=== PATIENT | male | born 1965 | race Caucasian/White ===

== ENCOUNTER 2016-11-16 10:26 | Emergency (ER) | payer BC ==
[2016-11-16] MEDS ORDERED: MORPHINE SULFATE 4 MG/ML SYRINGE IVP STA ×2 (10:54→12:28)
[2016-11-16] MEDS ORDERED: ONDANSETRON 4 MG/2 ML VIAL IVP STA (10:54)
[2016-11-16] MEDS ORDERED: SODIUM CHLORIDE 0.9% 1,000 ML IV ONE (10:54)
[2016-11-16] MEDS ORDERED: KETOROLAC 30 MG/ML 1 ML VIAL IVP STA (10:54)
[2016-11-16] MEDS ORDERED: RX INFO: IV CONTRAST WAS GIVEN 1 EACH MISC MISCELLANE PRN (10:54)
[2016-11-16 11:17] LABS: Basophils # (A) 0.1 k/uL (0-0.2); Basophils % (A) 1 %; CH 29.4; CHCM 36.1; Eosinophils # (A) 0.3 k/uL (0-0.7); Eosinophils % (A) 5 %; HCT 43.6 % (39.0-53.0); HDW 3.58; Luc # (Auto) 0.11; Luc % (Auto) 2; Lymphocytes # (A) 1.4 k/uL (1.0-4.8); Lymphocytes % (A) 19 %; MCH 28.2 pg (25.0-35.0); MCHC 34.4 g/dL (31.0-37.0); MCV 81.8 fL (80.0-100.0); Mean Platelet Volume 7.4; Monocytes # (A) 0.4 k/uL (0-1.0); Monocytes % (A) 5 %; Neutrophils # (A) 5.1 k/uL (1.3-7.7); Neutrophils % (A) 69 %; Poikilocytosis Slight; RBC 5.33 m/uL (4.30-5.90); RDW 14.1 % (11.5-15.5); WBC 7.4 k/uL (3.8-10.6); WBC (Perox) 7.17
[2016-11-16 11:30] LABS: ALT 38 U/L (21-72); AST 26 U/L (17-59); Alkaline Phosphatase 83 U/L (38-126); Anion Gap 15 mmol/L; Blood Urea Nitrogen 19 mg/dL (9-20); Calcium 9.6 mg/dL (8.4-10.2); Carbon Dioxide 27 mmol/L (22-30); Chloride 103 mmol/L (98-107); Glucose 123 mg/dL (74-99); Non-African American GFR(MDRD) >60 (>60 ml/min/1.73 sqM); Potassium 3.4 mmol/L (3.5-5.1); Sodium 145 mmol/L (137-145); Total Bilirubin 0.7 mg/dL (0.2-1.3); Total Protein 7.7 g/dL (6.3-8.2)
--- NOTE | 2016-11-16 12:11 | CT ---
EXAMINATION TYPE: CT abdomen pelvis w con DATE OF EXAM: 11/16/2016 11:44 AM REFERENCE: NONE HISTORY: Abdominal pain r/o diverticulitis HISTORY: LLQ pain, history of diverticulitis REFERENCE: NONE CT DLP: 2390.1 mGy Automated exposure control for dose reduction was used. TECHNIQUE: Helical acquisition through the abdomen and pelvis was obtained following the oral ingesti on of without Oral Contrast and following intravenous administration of 100 mL of Omnipaque 300. The data was reformatted in axial, coronal and sagittal projections. FINDINGS: Visualized portions of the lungs are clear. There is no pleural or pericardial fluid. Within the abdomen, there is hepatosplenomegaly with the liver measuring 21 cm and the spleen measuri ng 17 cm. The gallbladder is unremarkable. Both adrenal glands are normal. There is mild atrophic change involving the pancreas. Both kidneys demonstrate function and appear morphologically normal. There is no significant retroperitoneal, iliac or inguinal adenopathy. The bladder is unremarkable. There are numerous diverticula involving the sigmoid colon. I do not see evidence of diverticulitis. The appendix is not visualized. Small bowel loops are normal. There is no free fluid and no free air. There is mild hypertrophic spondylosis within the spine. IMPRESSION: 1. HEPATOSPLENOMEGALY. 2. UNCOMPLICATED DIVERTICULOSIS OF THE SIGMOID COLON. 3. MILD DEGENERATIVE CHANGE WITHIN THE SPINE.
--- NOTE | 2016-11-16 12:19 | ED ---
General Adult HPI - General Chief complaint: Abdominal Pain Stated complaint: abd pain Time Seen by Provider: 11/16/16 10:32 Source: patient Mode of arrival: ambulatory Limitations: no limitations - History of Present Illness Initial comments: 51-year-old male with past medical history of kidney stones and diverticulitis present for evaluation of suprapubic abdominal pain/pressure that started last night. He states this is similar to previous bouts of diverticulitis he said in the past but much more severe. At those times he would take antibiotics and symptoms resolve. There was associated hematochezia with his bowel movement last night and he further states urinary hesitancy which has resolved today while taking a warm shower. Last colonoscopy was a year ago but he is unsure who his GI specialist is. He denies any chest pain, shortness breath, fevers, chills but does admit to mild nausea. - Related Data Home Medications Medication Instructions Recorded Confirmed Allopurinol [Zyloprim] 300 mg PO DAILY 11/16/16 11/16/16 Atorvastatin [Lipitor] 10 mg PO DAILY 11/16/16 11/16/16 Carvedilol [Coreg] 25 mg PO BID 11/16/16 11/16/16 Cetirizine HCl [Zyrtec] 10 mg PO DAILY 11/16/16 11/16/16 Chlorthalidone [Hygroton] 25 mg PO DAILY 11/16/16 11/16/16 Fluticasone Nasal [place] [Flonase 1 spray EA NOSTRIL DAILY 11/16/16 11/16/16 Nasal [place]] Losartan Potassium [Cozaar] 100 mg PO HS 11/16/16 11/16/16 Potassium Chloride [K-Tab ER] 20 meq PO BID 11/16/16 11/16/16 amLODIPine [Norvasc] 10 mg PO HS 11/16/16 11/16/16 Previous Rx's Medication Instructions Recorded Ciprofloxacin HCl [Cipro] 500 mg PO Q12HR #28 tablet 11/16/16 HYDROcodone/APAP 5-325MG [[place] 1 - 2 tab PO Q6HR PRN #14 tab 11/16/16 5-325] metroNIDAZOLE [Flagyl] 500 mg PO Q8HR #32 tab 11/16/16 Allergies Allergy/AdvReac Type Severity Reaction Status Date / Time No Known Allergies Allergy Verified 11/16/16 12:50 Review of Systems ROS Statement: Those systems with pertinent positive or pertinent negative responses have been documented in the HPI. ROS Other: All systems not noted in ROS Statement are negative. Constitutional: Denies: fever, chills Eyes: Denies: eye pain, eye discharge, vision change ENT: Denies: ear pain, throat pain Respiratory: Denies: cough, dyspnea, wheezes, hemoptysis, stridor Cardiovascular: Denies: chest pain, palpitations Endocrine: Denies: fatigue, polydipsia, polyuria Gastrointestinal: Reports: abdominal pain, nausea, hematochezia. Denies: vomiting, hematemesis, melena Genitourinary: Reports: other (Hesitancy). Denies: hematuria, testicular pain, testicular mass Musculoskeletal: Denies: back pain, arthralgia Skin: Denies: rash, lesions Neurological: Denies: headache, weakness Psychiatric: Denies: anxiety, depression Past Medical History Past Medical History: Hypertension Additional Past Medical History / Comment(s): diverticulitis, kidney stone History of Any Multi-Drug Resistant Organisms: None Reported Past Surgical History: Appendectomy Additional Past Surgical History / Comment(s): lithotripsy Past Psychological History: No Psychological Hx Reported Smoking Status: Never smoker Past Alcohol Use History: Occasional Past Drug Use History: None Reported General Exam Limitations: no limitations General appearance: alert, in distress Head exam: Present: atraumatic, normocephalic Eye exam: Present: normal appearance, PERRL, EOMI ENT exam: Present: normal exam, normal oropharynx, mucous membranes moist Neck exam: Present: normal inspection. Absent: tenderness, full ROM Respiratory exam: Present: normal lung sounds bilaterally. Absent: respiratory distress, wheezes, rales Cardiovascular Exam: Present: regular rate, normal rhythm GI/Abdominal exam: Present: soft. Absent: tenderness, guarding, rebound Rectal exam: Present: deferred Extremities exam: Present: normal inspection, full ROM Back exam: Present: normal inspection, full ROM Neurological exam: Present: alert, oriented X3, CN II-XII intact, normal gait. Absent: altered Psychiatric exam: Present: normal affect, normal mood Skin exam: Present: warm, dry, intact Course Vital Signs 11/16/16 11/16/16 11/16/16 10:27 11:15 12:21 Temperature 97.5 F L 97.8 F Pulse Rate 78 60 57 L Respiratory 20 16 16 Rate Blood Pressure 137/79 113/57 118/69 O2 Sat by Pulse 95 94 L Oximetry EKG Findings - EKG Comments: EKG Findings:: Normal sinus rhythm with voltage criteria for LVH in aVL ventricular rate 64, TACOS 184, QRS 108, QTC 437 Medical Decision Making - Medical Decision Making 51-year-old male presented for evaluation of suprapubic abdominal pain /pressure since yesterday evening. He states that he has had bloody bowel movements with associated nausea. He does have a history of kidney stones but states this feels more like his diverticulitis. Last colonoscopy was here ago. Previous treatments with antibiotics of been successful but he states this current episode is much worse than before. On physical examination he does have suprapubic tenderness with some radiation up to the left lower quadrant without peritoneal signs of guarding, rigidity, or rebound. Concern for acute diverticulitis and will obtain CT abdomen with IV contrast, labs, and provide IV fluids, Zofran, and pain control. Labs revealed no significant abnormalities. CT of the abdomen showed no evidence of diverticulitis and stable diverticulosis. The patient was reevaluated and had improvement in his symptoms. He is informed of these results and through shared decision making it was determined that he would be discharged with instructions to follow-up with his primary care physician on Friday but to return if symptoms should worsen or persist in the meantime. He was informed that he would be given prescriptions for pain control, Zofran, and antibiotics. He acknowledged an understanding of this information and agreed with this plan of care. - Lab Data Result diagrams: 11/16/16 11:05 11/16/16 11:05 Lab Results 11/16/16 11/16/16 11/16/16 Range/Units 11:05 11:05 11:05 WBC 7.4 (3.8-10.6) k/uL RBC 5.33 (4.30-5.90) m/uL Hgb 15.0 (13.0-17.5) gm/dL Hct 43.6 (39.0-53.0) % MCV 81.8 (80.0-100.0) fL MCH 28.2 (25.0-35.0) pg MCHC 34.4 (31.0-37.0) g/dL RDW 14.1 (11.5-15.5) % Plt Count 240 (150-450) k/uL Neutrophils % 69 % Lymphocytes % 19 % Monocytes % 5 % Eosinophils % 5 % Basophils % 1 % Neutrophils # 5.1 (1.3-7.7) k/uL Lymphocytes # 1.4 (1.0-4.8) k/uL Monocytes # 0.4 (0-1.0) k/uL Eosinophils # 0.3 (0-0.7) k/uL Basophils # 0.1 (0-0.2) k/uL Poikilocytosis Slight Sodium 145 (137-145) mmol/L Potassium 3.4 L (3.5-5.1) mmol/L Chloride 103 (98-107) mmol/L Carbon Dioxide 27 (22-30) mmol/L Anion Gap 15 mmol/L BUN 19 (9-20) mg/dL Creatinine 1.10 (0.66-1.25) mg/dL Est GFR (MDRD) Af Amer >60 (>60 ml/min/1.73 sqM) Est GFR (MDRD) Non-Af >60 (>60 ml/min/1.73 sqM) Glucose 123 H (74-99) mg/dL Plasma Lactic Acid [place] 1.2 (0.7-2.0) mmol/L Calcium 9.6 (8.4-10.2) mg/dL Total Bilirubin 0.7 (0.2-1.3) mg/dL AST 26 (17-59) U/L ALT 38 (21-72) U/L Alkaline Phosphatase 83 (38-126) U/L Total Protein 7.7 (6.3-8.2) g/dL Albumin 4.7 (3.5-5.0) g/dL Lipase 680 H (23-300) U/L Urine Color Urine Appearance (Clear) Urine pH (5.0-8.0) Ur Specific [place] (1.001-1.035) Urine Protein (Negative) Urine Glucose (UA) (Negative) Urine Ketones (Negative) Urine Blood (Negative) Urine Nitrite (Negative) Urine Bilirubin (Negative) Urine Urobilinogen (<2.0) mg/dL Ur Leukocyte Esterase (Negative) Urine RBC (0-5) /hpf Urine WBC (0-5) /hpf Ur Squamous Epith Cells (0-4) /hpf Urine Mucus (None) /hpf 11/16/16 Range/Units 12:06 WBC (3.8-10.6) k/uL RBC (4.30-5.90) m/uL Hgb (13.0-17.5) gm/dL Hct (39.0-53.0) % MCV (80.0-100.0) fL MCH (25.0-35.0) pg MCHC (31.0-37.0) g/dL RDW (11.5-15.5) % Plt Count (150-450) k/uL Neutrophils % % Lymphocytes % % Monocytes % % Eosinophils % % Basophils % % Neutrophils # (1.3-7.7) k/uL Lymphocytes # (1.0-4.8) k/uL Monocytes # (0-1.0) k/uL Eosinophils # (0-0.7) k/uL Basophils # (0-0.2) k/uL Poikilocytosis Sodium (137-145) mmol/L Potassium (3.5-5.1) mmol/L Chloride (98-107) mmol/L Carbon Dioxide (22-30) mmol/L Anion Gap mmol/L BUN (9-20) mg/dL Creatinine (0.66-1.25) mg/dL Est GFR (MDRD) Af Amer (>60 ml/min/1.73 sqM) Est GFR (MDRD) Non-Af (>60 ml/min/1.73 sqM) Glucose (74-99) mg/dL Plasma Lactic Acid [place] (0.7-2.0) mmol/L Calcium (8.4-10.2) mg/dL Total Bilirubin (0.2-1.3) mg/dL AST (17-59) U/L ALT (21-72) U/L Alkaline Phosphatase (38-126) U/L Total Protein (6.3-8.2) g/dL Albumin (3.5-5.0) g/dL Lipase (23-300) U/L Urine Color Yellow Urine Appearance Clear (Clear) Urine pH 5.5 (5.0-8.0) Ur Specific [place] 1.029 (1.001-1.035) Urine Protein 1+ H (Negative) Urine Glucose (UA) Negative (Negative) Urine Ketones Negative (Negative) Urine Blood Negative (Negative) Urine Nitrite Negative (Negative) Urine Bilirubin Negative (Negative) Urine Urobilinogen <2.0 (<2.0) mg/dL Ur Leukocyte Esterase Negative (Negative) Urine RBC <1 (0-5) /hpf Urine WBC 2 (0-5) /hpf Ur Squamous Epith Cells 1 (0-4) /hpf Urine Mucus Rare H (None) /hpf Disposition Clinical Impression: Diverticulosis, Nausea Disposition: HOME SELF-CARE Condition: Stable Instructions: Diverticulosis (ED), Diverticulitis (ED), Diverticulitis Diet (ED ) Additional Instructions: Please use medication as discussed. Please follow up with family doctor if symptoms have not improved over the next two days. Please return to the emergency room if your symptoms increase or worsen or for any other concerns. Prescriptions: Ciprofloxacin HCl [Cipro] 500 mg PO Q12HR #28 tablet HYDROcodone/APAP 5-325MG [[place] 5-325] 1 - 2 tab PO Q6HR PRN #14 tab PRN Reason: Analgesia metroNIDAZOLE [Flagyl] 500 mg PO Q8HR #32 tab Time of Disposition: 14:15
[2016-11-16 12:21] VITALS: RESP 16
[2016-11-16 12:59] LABS: Appearance,Urine Clear (Clear); Bilirubin,Urine Negative (Negative); Glucose,Urine (UA) Negative (Negative); Ketones,Urine Negative (Negative); Leukocyte Esterase,Urine Negative (Negative); Mucus,Urine Rare /hpf; Nitrite,Urine Negative (Negative); PH, Urine 5.5 (5.0-8.0); Particle Count 4302; Protein,Urine 1+ (Negative); RBC,Urine <1 /hpf (0-5); Specific Gravity,Urine 1.029 (1.001-1.035); Squamous Epithelial Cell,Urine 1 /hpf (0-4); UA Billing (MACRO vs. MICRO) MICRO; Urobilinogen,Urine <2.0 mg/dL (<2.0); WBC,Urine 2 /hpf (0-5)
[2016-11-16] MEDS ORDERED: ONDANSETRON 4 MG ODT STARTER PACK 2 TAB BTL PO STA (14:11)
[2016-11-16 14:20] VITALS: BP 146/76; PULSE 67; TEMP 97.7
== END 2016-11-16 14:33 | disposition home or self-care (01) ==
LOC: EC 10:26
DX: K57.90 Diverticulosis of intestine, part unspecified, without perforation or abscess without bleeding (principal); R11.0 Nausea; R10.30 Lower abdominal pain, unspecified; Z87.442 Personal history of urinary calculi; I10 Essential (primary) hypertension; Z79.899 Other long term (current) drug therapy; Z79.02 Long term (current) use of antithrombotics/antiplatelets; Z87.19 Personal history of other diseases of the digestive system; Z90.49 Acquired absence of other specified parts of digestive tract
CPT/HCPCS: 36415; 93005; 80053; 83605; 83690; 85025; 81001; 74177; 99284; 96374; 96375 ×2; 96376; 96361; J2270; J2405; J1885; Q9967; S0119

== ENCOUNTER → 2017-03-06 | Outpatient (CLI) | payer BC ==
[2017-03-06 14:03] LABS: Blood Urea Nitrogen 12 mg/dL (9-20); Non-African American GFR(MDRD) >60 (>60 ml/min/1.73 sqM)
--- NOTE | 2017-03-06 15:36 | CT ---
EXAMINATION TYPE: CT abdomen pelvis w con DATE OF EXAM: 03/06/[address] abdomen and pelvis November 16, 2016 HISTORY: Patient complains of generalized pelvic pain, nausea, diarrhea, and constipation. Diverticul itis of large intestine per order. CT DLP: 2157 mGycm, Automated Exposure Control for Dose Reduction was Utilized. CONTRAST: CT scan of the abdomen and pelvis is performed with oral and with IV Contrast, patient injected with 100 mL of Omnipaque 300. FINDINGS: LUNG BASES: Some coronary artery calcification RCA distribution is identified. LIVER/GB: No significant abnormality is appreciated. PANCREAS: Mild fat replaced atrophy of pancreas is redemonstrated. SPLEEN: Spleen is once again enlar ged measuring 16.6 cm on long axis coronal image 60. A 1 cm splenule is redemonstrated in the inferio r splenic hilum on axial image 35 ADRENALS: No significant abnormality is seen. KIDNEYS: No significant abnormality is seen. BOWEL: Oral contrast reaches level of right colon. There is no suspicious small or large bowel dilata tion identified. Prominent colonic diverticula in the sigmoid colon are seen. There is new mild vasa engorgement in which mild acute diverticulitis cannot be excluded centered near axial image 81. No fr ee air or well-formed fluid collection is noted. PROSTATE/SEMINAL VESICLES: Prostate gland is heterogeneous in appearance and enlarged in size bulging on bladder base consistent with underlying BPH, clinical correlation is advised. LYMPH NODES: No greater than 1cm abdominal or pelvic lymph nodes are appreciated. OSSEOUS STRUCTURES: Straightening of spine on sagittal images is redemonstrated. OTHER: No significant additional abnormality is seen. IMPRESSION: Sigmoid colonic diverticulosis with suspected mild or early acute diverticulitis currentl y which correlates with patient history on the order. No well-formed fluid collection or free air is present.
== END | disposition home or self-care (01) ==
LOC: RADCTMAIN 13:16
DX: K57.30 Diverticulosis of large intestine without perforation or abscess without bleeding (principal)
CPT/HCPCS: 82565; 84520; 74177; 36415; Q9967

== ENCOUNTER 2017-03-19 12:38 | Observation (INO) | payer BC ==
--- NOTE | 2017-03-19 14:33 | ED ---
GI Bleed HPI - General Source: patient, RN notes reviewed Mode of arrival: ambulatory Limitations: no limitations <Pardeep Lynch - Last Filed: 03/19/17 16:07> <Arvind Lujan - Last Filed: 03/19/17 17:05> - General Chief complaint: GI Bleed Stated complaint: Abd Pain Time Seen by Provider: 03/19/17 14:12 - History of Present Illness Initial comments: 51-year-old male presents emergency Department chief complaint abdominal pain. Patient's abdomen off issues since October and has been evaluated several times in ER and was told that he had diverticulitis placed on antibiotics with minimal improvement. Patient states that his GI physician Monica believes that he is not diverticulitis cause a normal colonoscopy in the room 216. Patient had recent CT a few weeks prior which showed evidence of diverticulitis again though he was told this was not diverticulitis is more likely colitis. Patient is waiting for his GI physician to get Bactrim at this point. Patient states he was tried on a course of steroids states she did well when he is on 30 mg. Patient denies any nausea vomiting at this time. Patient states that he does have rectal bleeding and states it's with every bowel movement. Much since October. Patient states that he is having increasing pain this time along with some abdominal distention. (Pardeep Lynch) - Related Data Home Medications Medication Instructions Recorded Confirmed Allopurinol [Zyloprim] 300 mg PO DAILY 11/16/16 03/19/17 Atorvastatin [Lipitor] 10 mg PO DAILY 11/16/16 03/19/17 Carvedilol [Coreg] 25 mg PO BID 11/16/16 03/19/17 Cetirizine HCl [Zyrtec] 10 mg PO DAILY 11/16/16 03/19/17 Chlorthalidone [Hygroton] 25 mg PO DAILY 11/16/16 03/19/17 Fluticasone Nasal [place] [Flonase 1 spray EA NOSTRIL DAILY PRN 11/16/16 03/19/17 Nasal [place]] Losartan Potassium [Cozaar] 100 mg PO HS 11/16/16 03/19/17 Potassium Chloride [K-Tab ER] 20 meq PO BID 11/16/16 03/19/17 amLODIPine [Norvasc] 10 mg PO HS 11/16/16 03/19/17 Allergies Allergy/AdvReac Type Severity Reaction Status Date / Time No Known Allergies Allergy Verified 03/19/17 14:32 Review of Systems ROS Other: All systems not noted in ROS Statement are negative. <Pardeep Lynch - Last Filed: 03/19/17 16:07> ROS Other: All systems not noted in ROS Statement are negative. <Arvind Lujan - Last Filed: 03/19/17 17:05> ROS Statement: Those systems with pertinent positive or pertinent negative responses have been documented in the HPI. Past Medical History Past Medical History: Hypertension Additional Past Medical History / Comment(s): kidney stone History of Any Multi-Drug Resistant Organisms: None Reported Past Surgical History: Appendectomy Additional Past Surgical History / Comment(s): lithotripsy Past Psychological History: No Psychological Hx Reported Smoking Status: Never smoker Past Alcohol Use History: Occasional Past Drug Use History: None Reported <Pardeep Lynch - Last Filed: 03/19/17 16:07> General Exam Limitations: no limitations General appearance: alert, in no apparent distress Head exam: Present: atraumatic, normocephalic, normal inspection Eye exam: Present: normal appearance, PERRL, EOMI. Absent: scleral icterus, conjunctival injection, periorbital swelling Respiratory exam: Present: normal lung sounds bilaterally. Absent: respiratory distress, wheezes, rales, rhonchi, stridor Cardiovascular Exam: Present: regular rate, normal rhythm, normal heart sounds. Absent: systolic murmur, diastolic murmur, rubs, gallop, clicks GI/Abdominal exam: Present: soft, tenderness ([id number] diffuse greater in the lower abdomen), normal bowel sounds. Absent: distended, guarding, rebound, rigid Back exam: Absent: CVA tenderness (R), CVA tenderness (L) Psychiatric exam: Present: normal affect, normal mood <Pardeep Lynch - Last Filed: 03/19/17 16:07> Course <Pardeep Lynch - Last Filed: 03/19/17 16:07> <Arvind Lujan - Last Filed: 03/19/17 17:05> Vital Signs 03/19/17 13:44 Temperature 99.1 F Pulse Rate 60 Respiratory 18 Rate Blood Pressure 139/86 O2 Sat by Pulse 99 Oximetry - Reevaluation(s) Reevaluation #1: 03/19/17 17:05 I did personally do a [id number] evaluation the patient did discuss findings with him. Patient currently has no abdominal pain his abdomen soft nontender. I did discuss the case with the hospitalist service. Patient will be admitted ( Arvind Lujan) Medical Decision Making - Lab Data Result diagrams: 03/19/17 14:38 03/19/17 14:38 <Pardeep Lynch - Last Filed: 03/19/17 16:07> - Lab Data Result diagrams: 03/19/17 14:38 03/19/17 14:38 <Arvind Lujan - Last Filed: 03/19/17 17:05> - Lab Data Lab Results 03/19/17 03/19/17 03/19/17 Range/Units 14:38 14:38 14:38 WBC 10.5 (3.8-10.6) k/uL RBC 5.21 (4.30-5.90) m/uL Hgb 15.1 (13.0-17.5) gm/dL Hct 43.8 (39.0-53.0) % MCV 84.1 (80.0-100.0) fL MCH 29.0 (25.0-35.0) pg MCHC 34.5 (31.0-37.0) g/dL RDW 15.5 (11.5-15.5) % Plt Count 289 (150-450) k/uL Neutrophils % 69 % Lymphocytes % 21 % Monocytes % 6 % Eosinophils % 3 % Basophils % 1 % Neutrophils # 7.3 (1.3-7.7) k/uL Lymphocytes # 2.2 (1.0-4.8) k/uL Monocytes # 0.6 (0-1.0) k/uL Eosinophils # 0.3 (0-0.7) k/uL Basophils # 0.1 (0-0.2) k/uL APTT 23.8 (22.0-30.0) sec Sodium 144 (137-145) mmol/L Potassium 3.5 (3.5-5.1) mmol/L Chloride 105 (98-107) mmol/L Carbon Dioxide 26 (22-30) mmol/L Anion Gap 13 mmol/L BUN 18 (9-20) mg/dL Creatinine 1.00 (0.66-1.25) mg/dL Est GFR (MDRD) Af Amer >60 (>60 ml/min/1.73 sqM) Est GFR (MDRD) Non-Af >60 (>60 ml/min/1.73 sqM) Glucose 89 (74-99) mg/dL Calcium 9.4 (8.4-10.2) mg/dL Total Bilirubin 1.0 (0.2-1.3) mg/dL AST 27 (17-59) U/L ALT 40 (21-72) U/L Alkaline Phosphatase 82 (38-126) U/L Total Protein 7.2 (6.3-8.2) g/dL Albumin 4.3 (3.5-5.0) g/dL Lipase 129 (23-300) U/L Urine Color Urine Appearance (Clear) Urine pH (5.0-8.0) Ur Specific [place] (1.001-1.035) Urine Protein (Negative) Urine Glucose (UA) (Negative) Urine Ketones (Negative) Urine Blood (Negative) Urine Nitrite (Negative) Urine Bilirubin (Negative) Urine Urobilinogen (<2.0) mg/dL Ur Leukocyte Esterase (Negative) Urine RBC (0-5) /hpf Urine WBC (0-5) /hpf Ur Squamous Epith Cells (0-4) /hpf Amorphous Sediment (None) /hpf Hyaline Casts (0-2) /lpf Urine Mucus (None) /hpf 03/19/17 Range/Units 15:23 WBC (3.8-10.6) k/uL RBC (4.30-5.90) m/uL Hgb (13.0-17.5) gm/dL Hct (39.0-53.0) % MCV (80.0-100.0) fL MCH (25.0-35.0) pg MCHC (31.0-37.0) g/dL RDW (11.5-15.5) % Plt Count (150-450) k/uL Neutrophils % % Lymphocytes % % Monocytes % % Eosinophils % % Basophils % % Neutrophils # (1.3-7.7) k/uL Lymphocytes # (1.0-4.8) k/uL Monocytes # (0-1.0) k/uL Eosinophils # (0-0.7) k/uL Basophils # (0-0.2) k/uL APTT (22.0-30.0) sec Sodium (137-145) mmol/L Potassium (3.5-5.1) mmol/L Chloride (98-107) mmol/L Carbon Dioxide (22-30) mmol/L Anion Gap mmol/L BUN (9-20) mg/dL Creatinine (0.66-1.25) mg/dL Est GFR (MDRD) Af Amer (>60 ml/min/1.73 sqM) Est GFR (MDRD) Non-Af (>60 ml/min/1.73 sqM) Glucose (74-99) mg/dL Calcium (8.4-10.2) mg/dL Total Bilirubin (0.2-1.3) mg/dL AST (17-59) U/L ALT (21-72) U/L Alkaline Phosphatase (38-126) U/L Total Protein (6.3-8.2) g/dL Albumin (3.5-5.0) g/dL Lipase (23-300) U/L Urine Color Yellow Urine Appearance Clear (Clear) Urine pH 5.5 (5.0-8.0) Ur Specific [place] 1.022 (1.001-1.035) Urine Protein Trace H (Negative) Urine Glucose (UA) Negative (Negative) Urine Ketones Negative (Negative) Urine Blood Negative (Negative) Urine Nitrite Negative (Negative) Urine Bilirubin Negative (Negative) Urine Urobilinogen 2.0 (<2.0) mg/dL Ur Leukocyte Esterase Small H (Negative) Urine RBC 1 (0-5) /hpf Urine WBC 17 H (0-5) /hpf Ur Squamous Epith Cells 1 (0-4) /hpf Amorphous Sediment Rare H (None) /hpf Hyaline Casts 8 H (0-2) /lpf Urine Mucus Rare H (None) /hpf Disposition <Pardeep Lynch - Last Filed: 03/19/17 16:07> <Arvind Lujan - Last Filed: 03/19/17 17:05> Clinical Impression: Colitis, Rectal bleeding Disposition: ADMITTED IP TO THIS HOSP Condition: Fair Referrals: Nikos Jaimes DO [Primary Care Provider] - 1-2 days
[2017-03-19 14:53] LABS: Basophils # (A) 0.1 k/uL (0-0.2); Basophils % (A) 1 %; CH 29.7; CHCM 35.5; Eosinophils # (A) 0.3 k/uL (0-0.7); Eosinophils % (A) 3 %; HCT 43.8 % (39.0-53.0); HDW 3.26; HGB 15.1 gm/dL (13.0-17.5); Luc # (Auto) 0.12; Luc % (Auto) 1; Lymphocytes # (A) 2.2 k/uL (1.0-4.8); Lymphocytes % (A) 21 %; MCHC 34.5 g/dL (31.0-37.0); MCV 84.1 fL (80.0-100.0); Mean Platelet Volume 6.9; Monocytes # (A) 0.6 k/uL (0-1.0); Monocytes % (A) 6 %; Neutrophils # (A) 7.3 k/uL (1.3-7.7); Neutrophils % (A) 69 %; RBC 5.21 m/uL (4.30-5.90); RDW 15.5 % (11.5-15.5); WBC 10.5 k/uL (3.8-10.6)
[2017-03-19 15:09] LABS: ALT 40 U/L (21-72); AST 27 U/L (17-59); Alkaline Phosphatase 82 U/L (38-126); Anion Gap 13 mmol/L; Blood Urea Nitrogen 18 mg/dL (9-20); Calcium 9.4 mg/dL (8.4-10.2); Carbon Dioxide 26 mmol/L (22-30); Chloride 105 mmol/L (98-107); Glucose 89 mg/dL (74-99); Non-African American GFR(MDRD) >60 (>60 ml/min/1.73 sqM); Potassium 3.5 mmol/L (3.5-5.1); Sodium 144 mmol/L (137-145); Total Protein 7.2 g/dL (6.3-8.2)
--- NOTE | 2017-03-19 15:09 | XR ---
EXAMINATION TYPE: XR KUB DATE OF EXAM: 03/19/2017 COMPARISON: NONE HISTORY: Pain TECHNIQUE: Single supine KUB image of the abdomen is obtained FINDINGS: Small bowel demonstrates no evidence for dilatation or air fluid levels. Gas and fecal material is seen in non-distended colon. No convincing evidence for pneumoperitoneum. No unusual calcifications. The lung bases are clear. The osseous structures are intact. IMPRESSION: 1. Overall nonobstructive bowel gas pattern.
[2017-03-19 15:33] LABS: Amorphous Sediment,Urine Rare /hpf; Appearance,Urine Clear (Clear); Bilirubin,Urine Negative (Negative); Glucose,Urine (UA) Negative (Negative); Ketones,Urine Negative (Negative); Leukocyte Esterase,Urine Small (Negative); Mucus,Urine Rare /hpf; Nitrite,Urine Negative (Negative); PH, Urine 5.5 (5.0-8.0); Particle Count 3873; Protein,Urine Trace (Negative); RBC,Urine 1 /hpf (0-5); Specific Gravity,Urine 1.022 (1.001-1.035); Squamous Epithelial Cell,Urine 1 /hpf (0-4); UA Billing (MACRO vs. MICRO) MICRO; WBC,Urine 17 /hpf (0-5)
[2017-03-19] MEDS ORDERED: ONDANSETRON 4 MG/2 ML VIAL IVP STA (16:07)
[2017-03-19] MEDS ORDERED: HYDROmorphone 1 MG/ML 1 ML SYRINGE IVP STA (16:07)
[2017-03-19] MEDS ORDERED: NALOXONE 0.4 MG/ML 1 ML VIAL IV PRN (16:08)
[2017-03-19] MEDS ORDERED: LEVOFLOXACIN 500 MG TAB PO STA (16:10)
[2017-03-19] MEDS: SODIUM CHLORIDE 0.9% 1,000 ML IV SCH (16:26)
[2017-03-19 18:17] VITALS: BMI 40.6
[2017-03-19] MEDS ORDERED: FLUTICASONE 50MCG/SPRAY NASAL 16GM EA NOSTRIL PRN (18:36)
[2017-03-19] MEDS: CARVEDILOL 12.5 MG TAB PO SCH (20:09)
[2017-03-19] MEDS: LOSARTAN 50 MG TAB PO SCH (20:09)
[2017-03-19] MEDS: POTASSIUM CHLORIDE ER 20 MEQ TAB.ER PO SCH (20:09)
[2017-03-19] MEDS: amLODIPine 10 MG TAB PO SCH (20:10)
[2017-03-19] MEDS: HYDROmorphone 1 MG/ML 1 ML SYRINGE IV PRN (21:00)
[2017-03-20] MEDS: HYDROmorphone 1 MG/ML 1 ML SYRINGE IV PRN ×5 (06:17→19:23)
[2017-03-20 07:23] LABS: Basophils % (A) 1 %; CH 29.1; CHCM 34.7; Eosinophils # (A) 0.5 k/uL (0-0.7); Eosinophils % (A) 6 %; HCT 39.3 % (39.0-53.0); HDW 3.33; HGB 13.4 gm/dL (13.0-17.5); Luc # (Auto) 0.09; Luc % (Auto) 1; Lymphocytes # (A) 1.6 k/uL (1.0-4.8); Lymphocytes % (A) 21 %; MCH 28.7 pg (25.0-35.0); MCHC 34.1 g/dL (31.0-37.0); MCV 84.3 fL (80.0-100.0); Mean Platelet Volume 6.3; Monocytes # (A) 0.4 k/uL (0-1.0); Monocytes % (A) 5 %; Neutrophils # (A) 5.1 k/uL (1.3-7.7); Neutrophils % (A) 66 %; RBC 4.66 m/uL (4.30-5.90); RDW 14.7 % (11.5-15.5); WBC 7.6 k/uL (3.8-10.6); WBC (Perox) 8.24
[2017-03-20 07:49] LABS: Anion Gap 9 mmol/L; Blood Urea Nitrogen 12 mg/dL (9-20); Calcium 8.7 mg/dL (8.4-10.2); Carbon Dioxide 27 mmol/L (22-30); Chloride 105 mmol/L (98-107); Glucose 109 mg/dL (74-99); Non-African American GFR(MDRD) >60 (>60 ml/min/1.73 sqM); Potassium 3.5 mmol/L (3.5-5.1); Sodium 141 mmol/L (137-145)
[2017-03-20] MEDS: CHLORTHALIDONE 25 MG TAB PO SCH (08:22)
[2017-03-20] MEDS: POTASSIUM CHLORIDE ER 20 MEQ TAB.ER PO SCH ×2 (08:22→20:38)
[2017-03-20] MEDS: LORATADINE 10 MG TAB PO SCH (08:22)
[2017-03-20] MEDS: ALLOPURINOL 300 MG TAB PO SCH (08:22)
[2017-03-20] MEDS: CARVEDILOL 12.5 MG TAB PO SCH ×2 (08:22→17:43)
[2017-03-20] MEDS: ATORVASTATIN 10 MG TAB PO SCH (08:23)
[2017-03-20] MEDS: SODIUM CHLORIDE 0.9% 1,000 ML IV SCH (08:24)
[2017-03-20 09:11] LABS: Erythrocyte Sedimentation Rate 8 mm/hr (0-15)
[2017-03-20 09:25] LABS: C Reactive Protein 9.8 mg/L (<10.0)
--- NOTE | 2017-03-20 11:05 | HP ---
DATE OF SERVICE: 03/19/2017 The chief complaints are GI bleed and abdominal pain. HISTORY OF PRESENT ILLNESS: This is a 51-year-old gentleman with a past medical history of multiple medical problems including hypertension, history of kidney stone, history of appendectomy, lithotripsy, being followed by Dr. Nikos Garcia in the outpatient setting, complaining of abdominal pain for several days. The patient had abdominal pain in actually January. The patient was felt to be in the lower part of the abdomen. The patient also had evaluation including CAT scans and as well as colonoscopy last year as well. Patient also noticed GI bleed and rectal bleeding with every bowel movement. The patient came to [facility] for further evaluation and treatment. There is no history of any fever, chills or rigors. No history of headache, loss of consciousness. The CBC also within normal limits. UA shows 17 WBCs. PAST MEDICAL HISTORY: History of hypertension, kidney stones, appendectomy, lithotripsy. Home medications include: 1. Norvasc 10 mg q.h.s. 2. K-tab ER 20 mEq b.i.d. 3. Cozaar 100 mg q.h.s. 4. Flonase 1 spray daily p.r.n. 5. [place] 25 mg p.o. daily. 6. Zyrtec 10 mg p.o. daily. 7. Coreg 25 mg p.o. b.i.d. 8. Lipitor 20 mg p.o. daily. 9. Zyloprim 300 mg p.o. daily. Allergies are none. FAMILY HISTORY: History of CHF and hyperlipidemia in the family, COPD in the family. SOCIAL HISTORY: No history of smoking, no history of alcohol intake. REVIEW OF SYSTEMS: ENT: No diminished hearing, diminished vision. CARDIOVASCULAR: No angina or palpitation. RESPIRATORY: No cough. GI: As mentioned earlier. : No dysuria. NERVOUS SYSTEM: No numbness or weakness. ALLERGY/IMMUNOLOGY: No asthma or hayfever. MUSCULOSKELETAL: As mentioned earlier. DERMATOLOGY: Negative. ENDOCRINE: No history of diabetes or hypothyroid. CONSTITUTIONAL: As mentioned earlier. DERMATOLOGY: Negative. RHEUMATOLOGY: Negative. PSYCHIATRY: As mentioned earlier. PHYSICAL EXAM: Patient is alert and oriented x3. Pulse is 61, blood pressure 128/67, respirations 16, temperature is 97.7, pulse ox 96% on room air. HEENT: Conjunctivae normal. NECK: No jugular venous distension. CARDIOVASCULAR DISEASE: S1, S2, muffled. RESPIRATORY: Breath sounds diminished at the bases, no rhonchi, no crackles. ABDOMEN: Soft, obese, mild diffuse tenderness with no guarding, no mass palpable. LEG: No edema, no swelling. NERVOUS SYSTEM: Higher functions as mentioned earlier, moves all 4 limbs, no focal motor deficits. LYMPHATICS: No lymph node enlargement in the neck or axillae. SKIN: No ulcer, rash or bleeding. Labs are CMP noted with normal noted. ASSESSMENT: 1. Abdominal pain diffusely and possibly colitis or diverticulitis. 2. Lower gastrointestinal bleeding for evaluation. 3. Urinary tract infection. 4. Obesity. 5. Hypertension. 6. Lithotripsy. RECOMMENDATION: This is a 51-year-old gentleman who presented with multiple complex medical issues. Will monitor the patient closely. Continue with the current medication and symptomatic treatment. Resume the home medications. Gastroenterology consultation for possible colonoscopy. Otherwise, symptomatic treatment of pain and I would also recommend repeat labs. C. diff has been requested. However, prognosis guarded because of multiple complex medical issues. Further recommendations to follow. See orders for further details. A copy of this will be forwarded to Dr. Conde who is the primary physician. [place]
--- NOTE | 2017-03-20 11:05 | P.CONS ---
History of Present Illness - Reason for Consult Consult date: 03/20/17 rectal bleeding Requesting physician: Bryant Smith - History of Present Illness 51-year-old male patient of Drs. Nikos Conde and Ruthy presents with rectal bleeding. Patient has been experiencing chronic lower left-sided abdominal pain with intermittent small amounts red mucoid bowel movements since October. Intermittent fevers chills with unintentional 30 pound weight loss since October. CT abdomen and pelvis October reported hepatosplenomegaly with uncomplicated diverticulosis of the sigmoid colon. Patient states he was treated with antibiotics in October for suspected diverticulitis with some improvement. His symptoms returned in January but improved without antibiotics. He then went on vacation shortly thereafter symptoms returned was evaluated at [facility] in [place] placed on antibiotics with some improvement. About 2 weeks ago his PCP placed him on a low-dose steroid taper after review of CT could not exclude diverticulitis which helped his improvements however returned. He averages 10 mucoid red bloody bowel movements a day on a good day he averages about 5. Pain seems to be constipated mostly on the left side. No history of personal a familial inflammatory bowel diseases. No history of these types of symptoms prior to October. Last colonoscopy screening was in the fall [address] Bliss possible 2 small polyps removed. Patient was evaluated by Dr. Bliss less than 2 weeks ago with recommendations to have outpatient colonoscopy on 04/11/2017. No changes in his vision or skin. No sick contacts. No changes in diet or medications. Stool occult blood positive. Clostridium difficile negative. Hemoglobin 13.4-15.1. White count 7.6-10.5. BUN 18. Creatinine 1.0. LFTs unremarkable. C-reactive protein 9.8. Review of Systems Constitutional: Denies fever, chills, sweats, weight gain, or loss. HEENT: Negative for migraines, blurred vision or loss, earaches, drainage, tinnitus, oral mucosal lesions, dysphagia, or odynophagia. Cardiac: Hypertension. Negative for chest pain, arrhythmias, or palpitation. Respiratory: Negative for shortness of breath, hemoptysis, cough, or sputum production. Gastrointestinal: See HPI for pertinent findings. Genitourinary: Negative for hematuria, urgency, frequency, polyuria, dysuria, or penile discharge. Musculoskeletal: Negative for muscle aches, swelling, arthritis, and arthralgias. Neurologic: Negative for stroke or TIA. Endocrine: Negative for thyroid problems. Skin: Negative for rash or itching. Psychiatric: Negative history for depression and anxiety All systems: negative (See HPI) Past Medical History Past Medical History: Hypertension Additional Past Medical History / Comment(s): kidney stone History of Any Multi-Drug Resistant Organisms: None Reported Past Surgical History: Appendectomy Additional Past Surgical History / Comment(s): lithotripsy Past Anesthesia/Blood Transfusion Reactions: No Reported Reaction Past Psychological History: No Psychological Hx Reported Smoking Status: Never smoker Past Alcohol Use History: Occasional Past Drug Use History: None Reported - Past Family History Father Family Medical History: Congestive Heart Failure (CHF), Hyperlipidemia Mother Additional Family Medical History / Comment(s): emphysema, stomach issues Medications and Allergies Home Medications Medication Instructions Recorded Confirmed Type Allopurinol [Zyloprim] 300 mg PO DAILY 11/16/16 03/19/17 History Atorvastatin [Lipitor] 10 mg PO DAILY 11/16/16 03/19/17 History Carvedilol [Coreg] 25 mg PO BID 11/16/16 03/19/17 History Cetirizine HCl [Zyrtec] 10 mg PO DAILY 11/16/16 03/19/17 History Chlorthalidone [Hygroton] 25 mg PO DAILY 11/16/16 03/19/17 History Fluticasone Nasal [place] [Flonase 1 spray EA NOSTRIL DAILY PRN 11/16/16 03/19/17 History Nasal [place]] Losartan Potassium [Cozaar] 100 mg PO HS 11/16/16 03/19/17 History Potassium Chloride [K-Tab ER] 20 meq PO BID 11/16/16 03/19/17 History amLODIPine [Norvasc] 10 mg PO HS 11/16/16 03/19/17 History Allergies Allergy/AdvReac Type Severity Reaction Status Date / Time No Known Allergies Allergy Verified 03/19/17 14:32 Physical Exam Vitals: Vital Signs Temp Pulse Pulse Resp BP BP Pulse Ox 03/20/17 09:44 63 113/62 03/20/17 07:00 97.9 F 65 14 123/76 97 03/20/17 01:06 98.0 F 66 16 146/86 99 03/19/17 19:28 98.0 F 68 16 137/78 96 03/19/17 17:49 97.7 F 61 16 128/66 97 03/19/17 17:26 98.1 F 65 19 130/66 95 03/19/17 13:44 99.1 F 60 18 139/86 99 Intake and Output 03/19/17 03/20/17 03/20/17 22:59 06:59 14:59 Intake Total 262.5 590 700 Balance 262.5 590 700 Intake: Intake, IV Titration 262.5 Amount Sodium Chloride 0.9% 1, 262.5 000 ml @ 75 mls/hr IV . [id number] [facility] Rx#:[id number] Oral 590 700 Other: Voiding Method Toilet # Voids 2 2 # Bowel Movements 1 Weight 124.738 kg General appearance: The patient is alert, oriented, in no acute distress. HET: Head is normocephalic and atraumatic. Pupils are equal and reactive. Oropharynx is clear without lesions. Neck: Supple without lymphadenopathy. Trachea midline. Heart: S1 S2. Regular rate and rhythm. Lungs: No crackles or wheezes are heard. Abdomen: Soft, left lower quadrant tenderness, nondistended with bowel sounds. No peritoneal signs. No palpable organomegaly or masses. Extremities: Normal skin color and turgor. No cyanosis, rash, ulceration, clubbing, or edema. Radial and pedal pulses are 2/4 bilaterally. Neurological: No focal deficits. Strength and sensation are grossly intact. Results CBC & Chem 7: 03/20/17 06:58 03/20/17 06:58 Labs: Abnormal Lab Results - Last 24 Hours (Table) 03/19/17 03/20/17 Range/Units 15:23 06:58 Glucose 109 H (74-99) mg/dL Urine Protein Trace H (Negative) Ur Leukocyte Esterase Small H (Negative) Urine WBC 17 H (0-5) /hpf Amorphous Sediment Rare H (None) /hpf Hyaline Casts 8 H (0-2) /lpf Urine Mucus Rare H (None) /hpf Microbiology - Last 24 Hours (Table) 03/19/17 18:44 Stool for WBCs - Final Stool 03/19/17 18:44 Stool Culture - Preliminary Stool 03/19/17 15:23 Urine Culture - Preliminary Urine,Voided Assessment and Plan (1) Rectal bleeding Narrative/Plan: 51-year-old male with history of intermittent left-sided abdominal pain, unintentional 30 pound weight loss, with mucoid red bowel movement since October 2016 with underlying history of diverticulosis treated with antibiotics in the outpatient setting for suspected diverticulitis without improvement. Possible inflammatory possible ischemic colitis. Infectious etiology felt to be less likely. Status: Acute Plan: 1. Clear liquid diet. 2. Colonoscopy evaluation. The crystallographer has discussed the risks, benefits and alternative therapies for the above-mentioned procedure and for both sedation/analgesia as well as necessary blood product administration, if indicated, as they pertain to this patient. The patient has indicated understanding and acceptance of the risks and procedures discussed. Thank you for this kind referral and the opportunity to participate in the care of your patient. This consultation was discussed with Dr. Nava. The impression and plan of care have been directed as dictated.
[2017-03-20] MEDS: ONDANSETRON 4 MG/2 ML VIAL IVP PRN (12:48)
[2017-03-20] MEDS ORDERED: PEG 3350-NA SULF,BICARB,CL/KCL 4,000 ML BOTTLE PO ONE (15:00)
--- NOTE | 2017-03-20 19:24 | PN ---
DATE OF SERVICE: 03/20/2017 This 51-year-old gentleman, admitted with abdominal pain diffusely, possibly colitis or diverticulitis, is being closely monitored. Gastroenterology saw the patient and recommended colonoscopic evaluation. No chest pain. No palpitations. No fever. On exam, alert and oriented x3. Pulse 65, blood pressure 123/76, respiration 14, temperature 97.9, pulse ox 97% on room air. HEENT: Conjunctivae normal. NECK: No jugular venous distention. CARDIOVASCULAR SYSTEM: S1, S2 muffled. RESPIRATORY: Clear to auscultation. ABDOMEN: Soft. Mild diffuse discomfort on palpation. No guarding or rigidity. No mass palpable. LEGS: No edema. No swelling. NERVOUS SYSTEM: No focal deficit. LABS: CBC, CMP within normal limits. C difficile negative. ASSESSMENT: 1. Abdominal pain with diffuse colitis or diverticulitis. 2. Lower gastrointestinal bleeding for evaluation. 3. Urinary tract infection. 4. Obesity. 5. Hypertension. 6. History of lithotripsy. RECOMMENDATIONS AND DISCUSSION: I recommend to continue current medications, continue with the monitoring, symptomatic treatment. Otherwise, at this time I would recommend following up the patient closely. Possible colonoscopy. Repeat labs. Guarded prognosis. Further recommendations to follow. MTDD
[2017-03-20] MEDS: LOSARTAN 50 MG TAB PO SCH (20:38)
[2017-03-20] MEDS: amLODIPine 10 MG TAB PO SCH (20:38)
[2017-03-21] MEDS: HYDROmorphone 1 MG/ML 1 ML SYRINGE IV PRN ×6 (00:01→19:28)
[2017-03-21] MEDS: SODIUM CHLORIDE 0.9% 1,000 ML IV SCH ×2 (07:26→07:33)
[2017-03-21] MEDS: CARVEDILOL 12.5 MG TAB PO SCH ×2 (07:29→16:52)
[2017-03-21] MEDS: ALLOPURINOL 300 MG TAB PO SCH (09:02)
[2017-03-21] MEDS: CHLORTHALIDONE 25 MG TAB PO SCH (09:03)
[2017-03-21] MEDS: LORATADINE 10 MG TAB PO SCH (09:03)
[2017-03-21] MEDS: ATORVASTATIN 10 MG TAB PO SCH (09:03)
[2017-03-21] MEDS: POTASSIUM CHLORIDE ER 20 MEQ TAB.ER PO SCH ×2 (09:04→20:41)
[2017-03-21] MEDS: ONDANSETRON 4 MG/2 ML VIAL IVP PRN (09:14)
[2017-03-21] MEDS ORDERED: PROPOFOL 10 MG/ML 20 ML VIAL IV ONE (12:08)
[2017-03-21] MEDS ORDERED: LIDOCAINE 1% INJ 10MG/ML (20 ML MDV) ONE (12:08)
[2017-03-21] MEDS ORDERED: IV FLUID CONTINUATION 500 ML IV ONE (12:10)
--- NOTE | 2017-03-21 12:41 | P.PCN ---
Date of Procedure: 03/21/17 Preoperative Diagnosis: Postoperative Diagnosis: Procedure(s) Performed: BRIEF HISTORY: Patient is a 51-year-old pleasant male, scheduled for an elective colonoscopy as a part of evaluation of intermittent rectal bleeding and diarrhea on-and-off for the last 3 months duration. He was treated with possible acute hepatitis identified except no relief in symptoms. PROCEDURE PERFORMED: Colonoscopy with biopsy. PREOPERATIVE DIAGNOSIS: And intermittent rectal bleeding a few months duration.. IV sedation per Anesthesia. PROCEDURE: After informed consent was obtained, the patient, was brought into the endoscopy unit. IV sedation was administered by Anesthesia under continuous monitoring. Digital rectal examination was normal. Initially the Olympus CF- 160 flexible video colonoscope was then inserted in the rectum, gradually advanced into the right colon and there was significantly poor prep that was encountered here and the scope could not be advanced any further because of lack of visualization. At this time to irrigation was performed and the scope was withdrawn. There was significant amount of retained thick stool in the ascending colon, transverse colon, however after thorough irrigation the mucosa in this area appeared normal. There was active colitis involving the descending colon, sigmoid colon, and rectum with mucosal erythema, friability and some granularity with spontaneous bleeding but no erosions or ulcerations and multiple biopsies were done from this area. Retroflexion was performed in the rectum and no lesions were seen. The patient tolerated the procedure well. IMPRESSION: Active left sided colitis involving the rectum, sigmoid colon and the descending colon up to 50 cm from the anal verge with mucosal erythema, friability and granularity consistent with ulcerative colitis. Status post random biopsies. RECOMMENDATIONS: Findings of this examination were discussed with the patient as well as his family. He was advised to follow with the biopsy results. He will be started on oral mesalamine and steroid enemas. Diet will be advanced as tolerated. Implants: Indications for Procedure: Operative Findings: Description of Procedure:
[2017-03-21] MEDS: HYDROcodone/APAP 5-325MG 1 EACH TAB PO PRN ×2 (14:03→20:41)
[2017-03-21] MEDS: BALSALAZIDE DISODIUM 750 MG CAPSULE PO SCH (16:53)
[2017-03-21] MEDS ORDERED: LEVOFLOXACIN 500MG-D5W PMX 500 MG in DEXTROSE/WATER 1 100ML.BAG IVPB SCH (17:00)
[2017-03-21] MEDS: amLODIPine 10 MG TAB PO SCH (20:41)
[2017-03-21] MEDS: LOSARTAN 50 MG TAB PO SCH (20:41)
[2017-03-21] MEDS ORDERED: HYDROCORTISONE ENEMA 100 MG/60 ML RECTAL SCH (21:00)
--- NOTE | 2017-03-21 22:14 | PN ---
DATE OF SERVICE: 03/21/2017 This 51-year-old gentleman who was admitted with acute abdominal pain and lower GI bleeding is slated to have a colonoscopy today. No chest pain. No palpitations. No fever. On exam, alert and oriented x3. Pulse is 79, blood pressure 120/66, respiration 17, temperature 97.8, pulse ox 98% on room air. HEENT: Conjunctivae normal. NECK: No jugular venous distention. CARDIOVASCULAR: S1, S2 muffled. RESPIRATORY: Breath sounds diminished at the bases. A few rhonchi. No crackles. ABDOMEN: Soft. Mild diffuse tenderness . LEGS: No edema. No swelling. NERVOUS SYSTEM: No focal deficit. LABS: CBC, BMP within normal limits. C difficile negative. ASSESSMENT: 1. Abdominal pain, diffuse; colitis or diverticulitis. 2. Lower gastrointestinal bleeding for evaluation. 3. Urinary tract infection. 4. Obesity. 5. Hypertension. 6. History of lithotripsy. RECOMMENDATIONS AND DISCUSSION: I recommend to continue the current medications , continue symptomatic treatment. Continue with the pain medication. Continue with empiric antibiotics. Otherwise, colonoscopy. Continue to monitor. Guarded prognosis because of multiple complex medical issues. Further recommendations to follow. MTDD
[2017-03-22 01:58] VITALS: RESP 16
[2017-03-22] MEDS: BALSALAZIDE DISODIUM 750 MG CAPSULE PO SCH ×2 (08:40→13:38)
[2017-03-22] MEDS: ALLOPURINOL 300 MG TAB PO SCH (08:41)
[2017-03-22] MEDS: CARVEDILOL 12.5 MG TAB PO SCH (08:41)
[2017-03-22] MEDS: LORATADINE 10 MG TAB PO SCH (08:42)
[2017-03-22] MEDS: ATORVASTATIN 10 MG TAB PO SCH (08:42)
[2017-03-22] MEDS: CHLORTHALIDONE 25 MG TAB PO SCH (08:42)
[2017-03-22] MEDS: POTASSIUM CHLORIDE ER 20 MEQ TAB.ER PO SCH (08:43)
[2017-03-22 08:48] VITALS: BP 129/70; PULSE 86; TEMP 97.1
--- NOTE | 2017-03-22 11:21 | PN ---
The patient is a 51-year-old pleasant white male admitted to the hospital with abdominal pain, bloody diarrhea of several weeks duration. He underwent a colonoscopy yesterday that showed evidence of left-sided active colitis. Biopsies are still pending at the time of this dictation. Because of endoscopic picture consistent with ulcerative colitis he was started on Colazal 2 tablets three times daily and hydrocortisone enemas at that time. He is feeling a bit better this morning. He had two bowel movements with small amount of blood, but the abdominal pain is significantly improved. No nausea, vomiting. On physical examination, appears comfortable, no apparent distress. Vital signs are stable. Blood pressure is 121/66, pulse rate 79, temperature 97.8. HEENT examination unremarkable. Conjunctivae pink. Sclerae anicteric. Oral cavity, no lesions. No JVD or lymph node enlargement. Chest was clear to auscultation. Heart: Regular rate and rhythm. Abdomen is soft, slightly distended. Bowel sounds are positive. No organomegaly. Extremities: No pedal edema. Skin: No rashes. Neuro: Alert and oriented x3. No focal deficits. Labs done today: Hemoglobin is 13.4, WBC 11.6 and platelets are normal. IMPRESSION: This is a patient who presents with abdominal pain, bloody diarrhea for the last few weeks duration. Colonoscopy done yesterday showed left-sided active colitis suggestive of inflammatory bowel disease. Biopsies are still pending. RECOMMENDATIONS: 1. Continue with Colazal 2 tablets 3 times daily. 2. Continue with steroid enemas at bedtime. 3. Patient can be discharged home today with an outpatient follow up in 2 weeks. Thank you for this consultation. [place]
[2017-03-22] MEDS: SODIUM CHLORIDE 0.9% 1,000 ML IV SCH (13:42)
--- NOTE | 2017-03-22 21:06 | DS ---
FINAL DIAGNOSES: 1. Abdominal pain, diffuse, possible colitis and left sided colitis. 2. Lower gastrointestinal bleeding, improved. 3. Urinary tract infection. 4. Hypotension. 5. History of lithotripsy. DISCHARGE DISPOSITION: The patient is being discharged in stable condition with guarded prognosis. HISTORY OF PRESENT ILLNESS: 51 -year-old gentleman with past medical history of multiple medical problems admitted to the hospital with abdominal pain and GI bleeding had endoscopy, showed significant colitis. Biopsies were taken. Dr. Nava recommended treatment for presumed colitis. On exam, vital signs are stable. Cardiovascular: S1, S2 muffled. Abdomen soft. Nervous system: No focal deficits. Diet is soft, bland. Follow-up with Dr. Nava as advised. Follow-up with Dr. Borjas, primary care physician in two to three days. Follow-up labs CBC, BMP. Medications are: 1. Zyloprim 300 mg po daily. 2. Norvasc 10 mg q.h.s. 3. Lipitor 10 mg po daily. 4. Zolazol 1500 mg two tablets b.i.d. 5. Coreg 25 mg po b.i.d. 8. Pepcid 20 mg po b.i.d. 9. Flonase nasal spray. 10. [place] 5 mg q6h prn. 11. Losartan 100 mg q.h.s. 12. K-tab 20 meq po b.i.d. Follow-up labs with Dr. Borjas. Once again, the patient is being discharged in stable condition with guarded prognosis. Total time taken: 35 minutes. MTDD
== END 2017-03-22 14:48 | disposition home or self-care (01) ==
LOC: EC 12:38 → INTOOBSV 17:04 → 3SUR 17:04
PROVIDERS: ADMIT Hospitalist; ATTEND Hospitalist
DX: K51.50 Left sided colitis without complications (principal); K92.2 Gastrointestinal hemorrhage, unspecified; I10 Essential (primary) hypertension; N39.0 Urinary tract infection, site not specified; R10.9 Unspecified abdominal pain; K57.30 Diverticulosis of large intestine without perforation or abscess without bleeding; E66.9 Obesity, unspecified; Z79.899 Other long term (current) drug therapy; Z87.442 Personal history of urinary calculi; Z82.49 Family history of ischemic heart disease and other diseases of the circulatory system; Z68.41 Body mass index [BMI] 40.0-44.9, adult
CPT/HCPCS: 96376 ×3; 96361; 96374; 96375; 99285; 36415; 88305; 80053; 80048; 85652; 83690; 85025 ×2; 85730; 86140; 82272; 81001; 87324; 87086; 87045; 89055; 87046; 74000; 45380; G0378 ×5; J2405 ×3; J1956; J2001; J1170 ×3; J2704

== ENCOUNTER 2017-03-31 18:54 | Inpatient (IN) | payer BC ==
[2017-03-31] MEDS ORDERED: ONDANSETRON 4 MG/2 ML VIAL IVP STA (19:50)
[2017-03-31] MEDS ORDERED: HYDROmorphone 1 MG/ML 1 ML SYRINGE IVP STA (19:50)
[2017-03-31] MEDS ORDERED: metroNIDAZOLE-NS PMX 500 MG in SALINE 1 100ML.BAG IVPB STA (19:50)
[2017-03-31] MEDS ORDERED: RX INFO: IV CONTRAST WAS GIVEN 1 EACH MISC MISCELLANE PRN (19:50)
[2017-03-31] MEDS ORDERED: SODIUM CHLORIDE 0.9% 1,000 ML IV STA ×2 (19:50)
--- NOTE | 2017-03-31 19:57 | ED ---
Abdominal Pain HPI - General Chief Complaint: Abdominal Pain Stated Complaint: rectal bleed Time Seen by Provider: 03/31/17 19:19 Source: patient Mode of arrival: ambulatory Limitations: no limitations - History of Present Illness Initial Comments: 21 years old male presents with abdominal pain is more pronounced on the left side of the abdomen, he has a history of ulcer of colitis when he was in the hospital recently does see Dr. Godoy he had colonoscopy done recently. He called Dr. Godoy's office and they advised him to come to the ER he has abdominal pain he denies any fever no chills no nausea no vomiting. He did notice some blood with his stool and is also complaining about her difficulty voiding he does have a history of appendectomy longtime ago him in review of system is negative otherwise - Related Data Home Medications Medication Instructions Recorded Confirmed Allopurinol [Zyloprim] 300 mg PO DAILY 11/16/16 03/31/17 Atorvastatin [Lipitor] 10 mg PO DAILY 11/16/16 03/31/17 Carvedilol [Coreg] 25 mg PO BID 11/16/16 03/31/17 Cetirizine HCl [Zyrtec] 10 mg PO DAILY 11/16/16 03/31/17 Chlorthalidone [Hygroton] 25 mg PO DAILY 11/16/16 03/31/17 Fluticasone Nasal [place] [Flonase 1 spray EA NOSTRIL DAILY PRN 11/16/16 03/31/17 Nasal [place]] Losartan Potassium [Cozaar] 100 mg PO HS 11/16/16 03/31/17 Potassium Chloride [K-Tab ER] 20 meq PO BID 11/16/16 03/31/17 amLODIPine [Norvasc] 10 mg PO HS 11/16/16 03/31/17 HYDROcodone/APAP 5-325MG [[place] 1 tab PO Q6HR PRN 03/31/17 03/31/17 5-325] Previous Rx's Medication Instructions Recorded Balsalazide Disodium [Colazal] 1,500 mg PO TID #90 cap 03/22/17 Famotidine [Pepcid] 20 mg PO BID #60 tablet 03/22/17 Non-Formulary Drug [Non Formulary 100 mg RECTAL DAILY #40 misc 03/22/17 Drug] Allergies Allergy/AdvReac Type Severity Reaction Status Date / Time No Known Allergies Allergy Verified 03/31/17 19:17 Review of Systems ROS Statement: Those systems with pertinent positive or pertinent negative responses have been documented in the HPI. ROS Other: All systems not noted in ROS Statement are negative. Past Medical History Past Medical History: Hypertension Additional Past Medical History / Comment(s): kidney stone, coloitis History of Any Multi-Drug Resistant Organisms: None Reported Past Surgical History: Appendectomy Additional Past Surgical History / Comment(s): lithotripsy Past Anesthesia/Blood Transfusion Reactions: No Reported Reaction Past Psychological History: No Psychological Hx Reported Smoking Status: Never smoker Past Alcohol Use History: Occasional Past Drug Use History: None Reported - Past Family History Father Family Medical History: Congestive Heart Failure (CHF), Hyperlipidemia Mother Additional Family Medical History / Comment(s): emphysema, stomach issues General Exam - General Exam Comments Initial Comments: General: The patient is awake and alert, in moderate distress Skin: Skin is warm and dry and no rashes or lesions are noted. Eye: Pupils are equal, round and reactive to light, extra-ocular movements are intact; there is normal conjunctiva bilaterally. Ears, nose, mouth and throat: There are moist mucous membranes and no oral lesions. Neck: The neck is supple, there is no tenderness or JVD. Cardiovascular: There is a regular rate and rhythm. No murmur, rub or gallop is appreciated. Respiratory: To auscultation bilateral, no wheezing no rhonchi no distress respiratory simpson noticed Gastrointestinal: Is tender over the left lower quadrant area also tender over the sigmoid area as well, positive bowel sounds no guarding no rebounds Back: There is no tenderness to palpation in the midline. There is no obvious deformity. Musculoskeletal: Normal ROM, no tenderness, There is no pedal edema. There is no calf tenderness or swelling. No cords were appreciated. Neurological: CN II-XII intact, Cranial nerves III through XII are intact. There are no obvious motor or sensory deficits. Coordination appears grossly intact. Speech is normal. Psychiatric: Cooperative, appropriate mood & affect, normal judgment. Limitations: no limitations Course Vital Signs 03/31/17 03/31/17 18:55 21:27 Temperature 98.0 F Pulse Rate 105 H 60 Respiratory 18 16 Rate Blood Pressure 165/88 134/77 O2 Sat by Pulse 97 100 Oximetry Medical Decision Making - Lab Data Result diagrams: 03/31/17 20:10 08/07/17 20:10 Lab Results 03/31/17 03/31/17 03/31/17 Range/Units 20:10 20:10 20:10 WBC 7.9 (3.8-10.6) k/uL RBC 4.94 (4.30-5.90) m/uL Hgb 14.1 (13.0-17.5) gm/dL Hct 41.7 (39.0-53.0) % MCV 84.4 (80.0-100.0) fL MCH 28.5 (25.0-35.0) pg MCHC 33.8 (31.0-37.0) g/dL RDW 15.1 (11.5-15.5) % Plt Count 218 (150-450) k/uL Neutrophils % 68 % Lymphocytes % 17 % Monocytes % 5 % Eosinophils % 7 % Basophils % 1 % Neutrophils # 5.4 (1.3-7.7) k/uL Lymphocytes # 1.4 (1.0-4.8) k/uL Monocytes # 0.4 (0-1.0) k/uL Eosinophils # 0.6 (0-0.7) k/uL Basophils # 0.1 (0-0.2) k/uL Sodium 143 (137-145) mmol/L Potassium 3.4 L (3.5-5.1) mmol/L Chloride 101 (98-107) mmol/L Carbon Dioxide 29 (22-30) mmol/L Anion Gap 13 mmol/L BUN 13 (9-20) mg/dL Creatinine 1.00 (0.66-1.25) mg/dL Est GFR (MDRD) Af Amer >60 (>60 ml/min/1.73 sqM) Est GFR (MDRD) Non-Af >60 (>60 ml/min/1.73 sqM) Glucose 115 H (74-99) mg/dL Plasma Lactic Acid [place] (0.7-2.0) mmol/L Calcium 9.4 (8.4-10.2) mg/dL Total Bilirubin 1.0 (0.2-1.3) mg/dL AST 23 (17-59) U/L ALT 33 (21-72) U/L Alkaline Phosphatase 72 (38-126) U/L C-Reactive Protein 14.9 H (<10.0) mg/L Total Protein 6.8 (6.3-8.2) g/dL Albumin 4.0 (3.5-5.0) g/dL Amylase <30 L (30-110) U/L Lipase 80 (23-300) U/L Urine Color Dark Yellow Urine Appearance Clear (Clear) Urine pH 6.5 (5.0-8.0) Ur Specific [place] 1.027 (1.001-1.035) Urine Protein 1+ H (Negative) Urine Glucose (UA) Negative (Negative) Urine Ketones Trace H (Negative) Urine Blood Negative (Negative) Urine Nitrite Negative (Negative) Urine Bilirubin 1+ H (Negative) Urine Urobilinogen 3.0 (<2.0) mg/dL Ur Leukocyte Esterase Trace H (Negative) Urine RBC 2 (0-5) /hpf Urine WBC 13 H (0-5) /hpf Ur Squamous Epith Cells <1 (0-4) /hpf Urine Bacteria Rare H (None) /hpf Hyaline Casts 13 H (0-2) /lpf Urine Mucus Moderate H (None) /hpf // Range/Units 20:10 WBC (3.8-10.6) k/uL RBC (4.30-5.90) m/uL Hgb (13.0-17.5) gm/dL Hct (39.0-53.0) % MCV (80.0-100.0) fL MCH (25.0-35.0) pg MCHC (31.0-37.0) g/dL RDW (11.5-15.5) % Plt Count (150-450) k/uL Neutrophils % % Lymphocytes % % Monocytes % % Eosinophils % % Basophils % % Neutrophils # (1.3-7.7) k/uL Lymphocytes # (1.0-4.8) k/uL Monocytes # (0-1.0) k/uL Eosinophils # (0-0.7) k/uL Basophils # (0-0.2) k/uL Sodium (137-145) mmol/L Potassium (3.5-5.1) mmol/L Chloride (98-107) mmol/L Carbon Dioxide (22-30) mmol/L Anion Gap mmol/L BUN (9-20) mg/dL Creatinine (0.66-1.25) mg/dL Est GFR (MDRD) Af Amer (>60 ml/min/1.73 sqM) Est GFR (MDRD) Non-Af (>60 ml/min/1.73 sqM) Glucose (74-99) mg/dL Plasma Lactic Acid [place] 1.0 (0.7-2.0) mmol/L Calcium (8.4-10.2) mg/dL Total Bilirubin (0.2-1.3) mg/dL AST (17-59) U/L ALT (21-72) U/L Alkaline Phosphatase (38-126) U/L C-Reactive Protein (<10.0) mg/L Total Protein (6.3-8.2) g/dL Albumin (3.5-5.0) g/dL Amylase (30-110) U/L Lipase (23-300) U/L Urine Color Urine Appearance (Clear) Urine pH (5.0-8.0) Ur Specific [place] (1.001-1.035) Urine Protein (Negative) Urine Glucose (UA) (Negative) Urine Ketones (Negative) Urine Blood (Negative) Urine Nitrite (Negative) Urine Bilirubin (Negative) Urine Urobilinogen (<2.0) mg/dL Ur Leukocyte Esterase (Negative) Urine RBC (0-5) /hpf Urine WBC (0-5) /hpf Ur Squamous Epith Cells (0-4) /hpf Urine Bacteria (None) /hpf Hyaline Casts (0-2) /lpf Urine Mucus (None) /hpf Disposition Clinical Impression: Abdominal pain, Melena, Colitis Disposition: ADMITTED IP TO THIS [facility] Condition: Good Referrals: Nikos Jaimes DO [Primary Care Provider] - 1-2 days
[2017-03-31 20:34] LABS: Appearance,Urine Clear (Clear); Bacteria,Urine Rare /hpf; Bilirubin,Urine 1+ (Negative); Glucose,Urine (UA) Negative (Negative); Ketones,Urine Trace (Negative); Leukocyte Esterase,Urine Trace (Negative); Mucus,Urine Moderate /hpf; Nitrite,Urine Negative (Negative); PH, Urine 6.5 (5.0-8.0); Particle Count 7935; Protein,Urine 1+ (Negative); RBC,Urine 2 /hpf (0-5); Specific Gravity,Urine 1.027 (1.001-1.035); Squamous Epithelial Cell,Urine <1 /hpf (0-4); UA Billing (MACRO vs. MICRO) MICRO; WBC,Urine 13 /hpf (0-5)
[2017-03-31 20:35] LABS: Basophils # (A) 0.1 k/uL (0-0.2); Basophils % (A) 1 %; CH 30.2; Eosinophils # (A) 0.6 k/uL (0-0.7); Eosinophils % (A) 7 %; HCT 41.7 % (39.0-53.0); HDW 3.33; HGB 14.1 gm/dL (13.0-17.5); Luc % (Auto) 1; Lymphocytes # (A) 1.4 k/uL (1.0-4.8); Lymphocytes % (A) 17 %; MCH 28.5 pg (25.0-35.0); MCHC 33.8 g/dL (31.0-37.0); MCV 84.4 fL (80.0-100.0); Mean Platelet Volume 7.2; Monocytes # (A) 0.4 k/uL (0-1.0); Monocytes % (A) 5 %; Neutrophils # (A) 5.4 k/uL (1.3-7.7); Neutrophils % (A) 68 %; RBC 4.94 m/uL (4.30-5.90); RDW 15.1 % (11.5-15.5); WBC 7.9 k/uL (3.8-10.6); WBC (Perox) 7.99
[2017-03-31 20:44] LABS: ALT 33 U/L (21-72); AST 23 U/L (17-59); Alkaline Phosphatase 72 U/L (38-126); Amylase <30 U/L (30-110); Anion Gap 13 mmol/L; Blood Urea Nitrogen 13 mg/dL (9-20); C Reactive Protein 14.9 mg/L (<10.0); Calcium 9.4 mg/dL (8.4-10.2); Carbon Dioxide 29 mmol/L (22-30); Chloride 101 mmol/L (98-107); Glucose 115 mg/dL (74-99); Non-African American GFR(MDRD) >60 (>60 ml/min/1.73 sqM); Potassium 3.4 mmol/L (3.5-5.1); Sodium 143 mmol/L (137-145); Total Protein 6.8 g/dL (6.3-8.2)
--- NOTE | 2017-03-31 20:53 | XR ---
EXAMINATION TYPE: XR abdomen 2V DATE OF EXAM: 03/31/2017 8:34 PM CLINICAL HISTORY: Abdominal pain and bright red blood per rectum. TECHNIQUE: Single supine KUB image of the abdomen is obtained. COMPARISON: 03/19/2017. FINDINGS: Scattered gas is seen in non-distended small bowel loops. Gas and fe brennen material is seen in non-distended colon. There are no abnormal calcification appreciated. The rosario g bases are clear and the osseous structures are intact. IMPRESSION: Nonobstructive bowel gas pattern.
--- NOTE | 2017-03-31 22:03 | CT ---
EXAMINATION TYPE: CT abdomen pelvis w con DATE OF EXAM: 03/31/2017 COMPARISON: 03/06/2017 HISTORY: History of ulcerative colitis. Rectal bleeding and pelvic pain. CT DLP: 2219.70 mGycm Automated exposure control for dose reduction was used. TECHNIQUE: Helical acquisition of images was performed from the lung bases through the pelvis. CONTRAST: Performed without Oral Contrast and with IV Contrast, patient injected with 100 mL of Omnipaque 300. FINDINGS: LUNG BASES: No significant abnormality is appreciated. LIVER/GB: No significant abnormality is appreciated. PANCREAS: Diffuse pancreatic atrophy is noted. SPLEEN: The spleen is not enlarged. Small splenule is seen near the splenic hilum of the [place]. ADRENALS: No significant abnormality is seen. KIDNEYS: No significant abnormality is seen. FREE AIR: No free air is visualized. REPRODUCTIVE ORGANS: The prostate gland is enlarged measuring up to 5.5 cm in transverse dimension. URINARY BLADDER: No significant abnormality is seen. OSSEOUS STRUCTURES: No significant abnormality is seen. There is no sclerosis of the sacroiliac join ts. Osseous structures are intact with minimal degenerative changes of the thoracic lumbar spine. BOWEL: There is nondistention of the colon, however there is engorgement of the vasa recta most nota carol within the sigmoid colon with adjacent pericolonic adenopathy with lymph nodes in the low pelvis measuring up to 9 mm. There is no evidence of fat within the colonic varghese. No eccentric wall thicken ing is seen although evaluation for this is limited due to colonic nondistention and lack of intraven ous and oral contrast. Sigmoid colonic diverticulosis is noted. IMPRESSION: VASA RECTA ENGORGEMENT OF THE SIGMOID AND DESCENDING COLON WELL LOCAL ADENOPATHY. IN A PATIENT WITH A HISTORY OF INFLAMMATORY BOWEL DISEASE THIS MAY REPRESENT CHRONIC INFLAMMATORY CHANGES, HOWEVER COLONOSCOPY IS RECOMMENDED AFTER RESOLUTION OF SYMPTOMS. CT OR MRI ENTEROGRAPHY COULD BE PERFORMED T O EVALUATE FOR INFLAMMATORY ACUTE COMPONENT.
[2017-03-31] MEDS ORDERED: ONDANSETRON 4 MG/2 ML VIAL IVP PRN (22:20)
[2017-03-31] MEDS ORDERED: NALOXONE 0.4 MG/ML 1 ML VIAL IV PRN (22:20)
[2017-03-31] MEDS ORDERED: ACETAMINOPHEN TAB 325 MG TAB PO PRN (22:20)
[2017-03-31] MEDS ORDERED: FLUTICASONE 50MCG/SPRAY NASAL 16GM EA NOSTRIL PRN (22:23)
[2017-03-31] MEDS: HYDROmorphone 1 MG/ML 1 ML SYRINGE IV PRN (23:25)
[2017-03-31 23:31] VITALS: BMI 38.4
[2017-04-01] MEDS: HYDROmorphone 1 MG/ML 1 ML SYRINGE IV PRN ×3 (02:20→21:08)
[2017-04-01 07:25] LABS: Basophils % (A) 1 %; CHCM 34.9; Eosinophils # (A) 0.6 k/uL (0-0.7); Eosinophils % (A) 11 %; HDW 3.33; HGB 12.4 gm/dL (13.0-17.5); Luc # (Auto) 0.08; Luc % (Auto) 2; Lymphocytes # (A) 0.9 k/uL (1.0-4.8); Lymphocytes % (A) 17 %; MCH 28.3 pg (25.0-35.0); MCHC 32.8 g/dL (31.0-37.0); MCV 86.4 fL (80.0-100.0); Mean Platelet Volume 7.2; Monocytes # (A) 0.3 k/uL (0-1.0); Monocytes % (A) 6 %; Neutrophils # (A) 3.6 k/uL (1.3-7.7); Neutrophils % (A) 65 %; RDW 15.1 % (11.5-15.5); WBC 5.6 k/uL (3.8-10.6); WBC (Perox) 5.41
--- NOTE | 2017-04-01 07:46 | P.CONS ---
History of Present Illness - Reason for Consult Consult date: 04/01/17 Ulcerative colitis Requesting physician: Boris Batista - History of Present Illness 51-year-old male patient of Drs. Bliss and Amaya recently diagnosed 03/21/2017 with active left sided ulcerative colitis status post colonoscopy. He was discharged on Colazal 750 mg 2 tablets TID as well as hydrocortisone enema QHS. Presents to the hospital with increased left-sided abdominal pain without fever or chills. 10-15 loose blood tinged bowel movements daily. Denies hematemesis or melena. Patient states he had some relief for the first 2-3 days after discharge with steroid-based enemas that then abdominal pain and bowel movements increased. CT abdomen and pelvis without oral contrast reported engorgement of the sigmoid and descending colon as well as local adenopathy without obstruction abscess or perforation. White count 7.9. Hemoglobin 14.1. CRP 14.9. Review of Systems Constitutional: Denies fever, chills, sweats, weight gain, or loss. HEENT: Negative for migraines, blurred vision or loss, earaches, drainage, tinnitus, oral mucosal lesions, dysphagia, or odynophagia. Cardiac: Hypertension. Negative for chest pain, arrhythmias, or palpitation. Respiratory: Negative for shortness of breath, hemoptysis, cough, or sputum production. Gastrointestinal: See HPI for pertinent findings. Genitourinary: Negative for hematuria, urgency, frequency, polyuria, dysuria, or penile discharge. Musculoskeletal: Negative for muscle aches, swelling, arthritis, and arthralgias. Neurologic: Negative for stroke or TIA. Endocrine: Negative for thyroid problems. Skin: Negative for rash or itching. Psychiatric: Negative history for depression and anxiety All systems: negative (See HPI) Past Medical History Past Medical History: Hypertension Additional Past Medical History / Comment(s): kidney stone, ulcerative colitis History of Any Multi-Drug Resistant Organisms: None Reported Past Surgical History: Appendectomy Additional Past Surgical History / Comment(s): lithotripsy, colonoscopy 2016 Past Anesthesia/Blood Transfusion Reactions: No Reported Reaction Past Psychological History: No Psychological Hx Reported Smoking Status: Never smoker Past Alcohol Use History: Occasional Past Drug Use History: None Reported - Past Family History Father Family Medical History: Congestive Heart Failure (CHF), Hyperlipidemia Mother Additional Family Medical History / Comment(s): emphysema, stomach issues Medications and Allergies Home Medications Medication Instructions Recorded Confirmed Type Allopurinol [Zyloprim] 300 mg PO DAILY 11/16/16 03/31/17 History Atorvastatin [Lipitor] 10 mg PO DAILY 11/16/16 03/31/17 History Carvedilol [Coreg] 25 mg PO BID 11/16/16 03/31/17 History Cetirizine HCl [Zyrtec] 10 mg PO DAILY 11/16/16 03/31/17 History Chlorthalidone [Hygroton] 25 mg PO DAILY 11/16/16 03/31/17 History Fluticasone Nasal [place] [Flonase 1 spray EA NOSTRIL DAILY PRN 11/16/16 03/31/17 History Nasal [place]] Losartan Potassium [Cozaar] 100 mg PO HS 11/16/16 03/31/17 History Potassium Chloride [K-Tab ER] 20 meq PO BID 11/16/16 03/31/17 History amLODIPine [Norvasc] 10 mg PO HS 11/16/16 03/31/17 History HYDROcodone/APAP 5-325MG [[place] 1 tab PO Q6HR PRN 03/31/17 03/31/17 History 5-325] Allergies Allergy/AdvReac Type Severity Reaction Status Date / Time No Known Allergies Allergy Verified 03/31/17 19:17 Physical Exam Vitals: Vital Signs Temp Pulse Pulse Resp BP BP Pulse Ox 04/01/17 04:00 98.2 F 58 L 16 123/76 94 L 04/01/17 03:27 52 L 16 03/31/17 23:56 55 L 16 03/31/17 23:00 98.6 F 58 L 16 123/76 94 L 03/31/17 22:51 66 16 156/78 94 L 03/31/17 21:27 60 16 134/77 100 03/31/17 18:55 98.0 F 105 H 18 165/88 97 Intake and Output 03/31/17 04/01/17 04/01/17 22:59 06:59 14:59 Other: Voiding Method Toilet # Voids 1 2 Weight 117.934 kg 117.934 kg General appearance: The patient is alert, oriented, in no acute distress. HET: Head is normocephalic and atraumatic. Pupils are equal and reactive. Oropharynx is clear without lesions. Neck: Supple without lymphadenopathy. Trachea midline. Heart: S1 S2. Regular rate and rhythm. Lungs: No crackles or wheezes are heard. Abdomen: Soft, left lower quadrant tenderness, nondistended with bowel sounds. No peritoneal signs. No palpable organomegaly or masses. Extremities: Normal skin color and turgor. No cyanosis, rash, ulceration, clubbing, or edema. Radial and pedal pulses are 2/4 bilaterally. Neurological: No focal deficits. Strength and sensation are grossly intact. Results CBC & Chem 7: 04/01/17 06:26 03/31/17 20:10 Labs: Abnormal Lab Results - Last 24 Hours (Table) 03/31/17 03/31/17 Range/Units 20:10 20:10 Potassium 3.4 L (3.5-5.1) mmol/L Glucose 115 H (74-99) mg/dL C-Reactive Protein 14.9 H (<10.0) mg/L Amylase <30 L (30-110) U/L Urine Protein 1+ H (Negative) Urine Ketones Trace H (Negative) Urine Bilirubin 1+ H (Negative) Ur Leukocyte Esterase Trace H (Negative) Urine WBC 13 H (0-5) /hpf Urine Bacteria Rare H (None) /hpf Hyaline Casts 13 H (0-2) /lpf Urine Mucus Moderate H (None) /hpf CT scan - abdomen: report reviewed (Dr. Bliss) Assessment and Plan (1) Exacerbation of ulcerative colitis with rectal bleeding Narrative/Plan: Moderate to severe exacerbation of ulcerative colitis, infectious component cannot be entirely excluded Status: Acute Plan: 1. Colazal 1500 mg TID. IV steroids Solumedrol 60 mg IV every 6 hours. Clostridium difficile/stool studies rule out infectious process. 2. Patient may require outpatient IV Biologics. 3. Clear liquid diet. Will follow with you. Thank you for this kind referral and the opportunity to participate in the care of your patient. This consultation was discussed with Dr. Bliss. The impression and plan of care have been directed as dictated.
[2017-04-01] MEDS: metroNIDAZOLE-NS PMX 500 MG in SALINE 1 100ML.BAG IVPB SCH ×3 (07:57→23:19)
[2017-04-01 08:02] LABS: ALT 29 U/L (21-72); AST 14 U/L (17-59); Alkaline Phosphatase 63 U/L (38-126); Anion Gap 9 mmol/L; Blood Urea Nitrogen 9 mg/dL (9-20); Calcium 8.4 mg/dL (8.4-10.2); Carbon Dioxide 31 mmol/L (22-30); Chloride 101 mmol/L (98-107); Glucose 101 mg/dL (74-99); Non-African American GFR(MDRD) >60 (>60 ml/min/1.73 sqM); Potassium 3.1 mmol/L (3.5-5.1); Sodium 141 mmol/L (137-145); Total Bilirubin 0.7 mg/dL (0.2-1.3); Total Protein 5.8 g/dL (6.3-8.2)
[2017-04-01] MEDS: CARVEDILOL 12.5 MG TAB PO SCH ×3 (08:04→21:03)
[2017-04-01] MEDS: POTASSIUM CHLORIDE ER 20 MEQ TAB.ER PO SCH ×2 (08:04→21:04)
[2017-04-01] MEDS: BALSALAZIDE DISODIUM 750 MG CAPSULE PO SCH ×3 (08:05→21:03)
[2017-04-01] MEDS: ATORVASTATIN 10 MG TAB PO SCH ×2 (08:05→08:07)
[2017-04-01] MEDS: LORATADINE 10 MG TAB PO SCH (08:05)
[2017-04-01] MEDS: CHLORTHALIDONE 25 MG TAB PO SCH (08:05)
[2017-04-01] MEDS: FAMOTIDINE 20 MG TAB PO SCH ×2 (08:05→21:03)
[2017-04-01] MEDS: ALLOPURINOL 300 MG TAB PO SCH (08:05)
[2017-04-01] MEDS: HYDROcodone/APAP 5-325MG 1 EACH TAB PO PRN ×2 (08:11→17:12)
[2017-04-01] MEDS: methylPREDNISolone SOD SUCCI 125 MG/2 ML VIAL IV SCH ×3 (11:07→23:19)
[2017-04-01] MEDS ORDERED: Potassium Replacement Protocol 1 EACH MISC MISCELLANE PRN (18:22)
[2017-04-01] MEDS: POTASSIUM CHLORIDE 10 MEQ, LIDOCAINE 2% INJ 10 MG in SODIUM CHLORIDE 0.9% 100 ML IV SCH ×2 (19:43→21:01)
[2017-04-01] MEDS: LOSARTAN 50 MG TAB PO SCH (21:03)
[2017-04-01] MEDS: amLODIPine 10 MG TAB PO SCH (21:04)
--- NOTE | 2017-04-01 21:41 | P.HPIM ---
History of Present Illness H&P Date: 04/01/17 Chief Complaint: Bloody stools History of presenting complaint: This is a 51-year-old patient of Dr. Nikos Conde. Patient notes 03/21/[address] Cam Nava. Patient's felt of ulcerative colitis. Patient was just discharged hospital about 10 days ago. Patient continues to have heavy lower abdominal pain and bloody stools. Hence patient admitted to the hospital. Patient gets chills nausea, but given appetite. Feeling tired and weak rundown. Started on IV Solu-Medrol. 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 EYES: Pupils equal. Conjunctiva normal. HEENT: External appearance of nose and ears normal, oral cavity grossly normal. NECK: JVD not raised; masses not palpable. HEART: First and second heart sounds are normal; no edema. LUNGS: Respiratory rate normal; clear to auscultation. ABDOMEN: Soft, diffuse lower abdominal tenderness liver spleen not palpable, no masses palpable. LYMPHATICS: No lymph nodes palpable in the axilla and neck. PSYCH: [Alert and oriented x3; mood and affect anxious appearing. NEUROLOGICAL: Cranial nerves grossly intact; no facial asymmetry, power and sensation grossly intact. Investigations: 5.6, hemoglobin 12.4, potassium 3.1, be a 9, creatinine 0.94 Assessment: -Acute ulcerative colitis exacerbation recently had a colonoscopy with biopsies -Obesity BMI 30.4 -Essential hypertension -Kidney stones asymptomatic Plan: Patient started on IV fluids. Home medications are resumed. Hold off" because of bleeding. Also start an IV Solu-Medrol.. Megan was consulted. Care was discussed patient and at the bedside questions were answered Past Medical History Past Medical History: Hypertension Additional Past Medical History / Comment(s): kidney stone, ulcerative colitis History of Any Multi-Drug Resistant Organisms: None Reported Past Surgical History: Appendectomy Additional Past Surgical History / Comment(s): lithotripsy, colonoscopy 2016 Past Anesthesia/Blood Transfusion Reactions: No Reported Reaction Past Psychological History: No Psychological Hx Reported Smoking Status: Never smoker Past Alcohol Use History: Occasional Past Drug Use History: None Reported - Past Family History Father Family Medical History: Congestive Heart Failure (CHF), Hyperlipidemia Mother Additional Family Medical History / Comment(s): emphysema, stomach issues Medications and Allergies Home Medications Medication Instructions Recorded Confirmed Type Allopurinol [Zyloprim] 300 mg PO DAILY 11/16/16 03/31/17 History Atorvastatin [Lipitor] 10 mg PO DAILY 11/16/16 03/31/17 History Carvedilol [Coreg] 25 mg PO BID 11/16/16 03/31/17 History Cetirizine HCl [Zyrtec] 10 mg PO DAILY 11/16/16 03/31/17 History Chlorthalidone [Hygroton] 25 mg PO DAILY 11/16/16 03/31/17 History Fluticasone Nasal [place] [Flonase 1 spray EA NOSTRIL DAILY PRN 11/16/16 03/31/17 History Nasal [place]] Losartan Potassium [Cozaar] 100 mg PO HS 11/16/16 03/31/17 History Potassium Chloride [K-Tab ER] 20 meq PO BID 11/16/16 03/31/17 History amLODIPine [Norvasc] 10 mg PO HS 11/16/16 03/31/17 History HYDROcodone/APAP 5-325MG [[place] 1 tab PO Q6HR PRN 03/31/17 03/31/17 History 5-325] Allergies Allergy/AdvReac Type Severity Reaction Status Date / Time No Known Allergies Allergy Verified 03/31/17 19:17 Results CBC & Chem 7: 04/01/17 06:26 04/01/17 06:26 Labs: Abnormal Lab Results - Last 24 Hours (Table) 04/01/17 04/01/17 Range/Units 06:26 06:26 Hgb 12.4 L (13.0-17.5) gm/dL Hct 38.0 L (39.0-53.0) % Lymphocytes # 0.9 L (1.0-4.8) k/uL Potassium 3.1 L (3.5-5.1) mmol/L Carbon Dioxide 31 H (22-30) mmol/L Glucose 101 H (74-99) mg/dL AST 14 L (17-59) U/L Total Protein 5.8 L (6.3-8.2) g/dL Albumin 3.4 L (3.5-5.0) g/dL Microbiology - Last 24 Hours (Table) 04/01/17 07:45 Stool Culture - Preliminary Stool
[2017-04-02] MEDS: methylPREDNISolone SOD SUCCI 125 MG/2 ML VIAL IV SCH ×4 (05:52→23:30)
[2017-04-02 07:32] LABS: Glucose,Whole Blood 144 mg/dL (75-99)
[2017-04-02] MEDS: ATORVASTATIN 10 MG TAB PO SCH (08:44)
[2017-04-02] MEDS: ALLOPURINOL 300 MG TAB PO SCH (08:44)
[2017-04-02] MEDS: POTASSIUM CHLORIDE ER 20 MEQ TAB.ER PO SCH ×4 (08:44→21:02)
[2017-04-02] MEDS: FAMOTIDINE 20 MG TAB PO SCH ×2 (08:44→21:01)
[2017-04-02] MEDS: BALSALAZIDE DISODIUM 750 MG CAPSULE PO SCH ×3 (08:44→21:02)
[2017-04-02] MEDS: CARVEDILOL 12.5 MG TAB PO SCH ×2 (08:44→21:00)
[2017-04-02] MEDS: LORATADINE 10 MG TAB PO SCH (08:44)
[2017-04-02] MEDS: CHLORTHALIDONE 25 MG TAB PO SCH (08:45)
[2017-04-02] MEDS: metroNIDAZOLE-NS PMX 500 MG in SALINE 1 100ML.BAG IVPB SCH ×3 (08:45→23:30)
[2017-04-02] MEDS: INSULIN LISPRO (humaLOG) 300 UNIT/3 ML VIAL SQ SCH ×4 (08:45→21:01)
[2017-04-02 10:16] LABS: ALT 23 U/L (21-72); AST 18 U/L (17-59); Alkaline Phosphatase 68 U/L (38-126); Anion Gap 14 mmol/L; Blood Urea Nitrogen 9 mg/dL (9-20); Calcium 9.2 mg/dL (8.4-10.2); Carbon Dioxide 27 mmol/L (22-30); Chloride 100 mmol/L (98-107); Glucose 188 mg/dL (74-99); Non-African American GFR(MDRD) >60 (>60 ml/min/1.73 sqM); Potassium 3.2 mmol/L (3.5-5.1); Sodium 141 mmol/L (137-145); Total Bilirubin 0.6 mg/dL (0.2-1.3); Total Protein 6.7 g/dL (6.3-8.2)
[2017-04-02] MEDS: HYDROmorphone 1 MG/ML 1 ML SYRINGE IV PRN ×2 (10:57→22:07)
[2017-04-02 11:04] LABS: Hemoglobin A1C 5.5 % (4.2-6.1)
[2017-04-02] MEDS ORDERED: Potassium Replacement Protocol 1 EACH MISC MISCELLANE PRN (11:37)
[2017-04-02 12:37] LABS: Glucose,Whole Blood 104 mg/dL (75-99)
[2017-04-02 17:05] LABS: Glucose,Whole Blood 149 mg/dL (75-99)
[2017-04-02 20:51] LABS: Glucose,Whole Blood 158 mg/dL (75-99)
[2017-04-02] MEDS: LOSARTAN 50 MG TAB PO SCH (21:00)
[2017-04-02] MEDS: amLODIPine 10 MG TAB PO SCH (21:01)
--- NOTE | 2017-04-03 00:27 | P.PN ---
<Syl Donnelly - Last Filed: 04/03/17 00:19> Progress Note - Text DATE OF SERVICE: 04/02/2017 PRESENTING COMPLAINT: Bloody stool INTERVAL HISTORY: This a 51-year-old patient with a history of ulcerative colitis, was having heavy lower abdominal pain and bloody stools and was admitted for the same. 04/02/2017: Patient sitting up in the bed states he feels much better than he did when he was admitted. No bloody bowel movements just a little bit of blood on the toilet paper from wiping. Appetite improved. Tolerating clear liquids. Less abdominal pain. Last BM today. Ambulating in the hallway without difficulty. REVIEW OF SYSTEMS: Done for constitutional ,cardiovascular, GI, pulmonary with relevant findings as above. CURRENT MEDICATIONS [place], Zyloprim, Norvasc, Lipitor, balsalazide, Coreg, [place], Pepcid. Solu- Medrol, Flagyl, t PHYSICAL EXAM VITAL SIGNS: temperature 98.1, pulse 58, respiratory rate 16, blood pressure 136/61, oxygen saturation 96% on room air. GENERAL APPEARANCE: Sitting on the edge of the bed, mildly anxious calm cooperative. EYES: Pupils equal. Conjunctiva normal. NECK: JVD not raised. Mass not palpable. RESPIRATORY: Respiratory effort normal. Lungs diminished to auscultation. CARDIOVASCULAR: First and second sounds normal. No edema. ABDOMEN: Soft. Liver and spleen not palpable. Mild tenderness to lower abdominal area. No mass palpable. PSYCHIATRY: Alert and oriented x3. Mood and affect mildly anxious. INVESTIGATIONS: Sodium 141, potassium 3.2, BUN 14, creatinine 0.88, Accu-Cheks noted ASSESSMENT: -Acute ulcerative colitis exacerbation recently had a colonoscopy with biopsies -Obesity BMI 30.4 -Essential hypertension -Kidney stones asymptomatic PLAN: Continue IV fluids and antibiotics, Solu-Medrol. Advance diet as patient did tolerate. Plan of care discussed at the bedside with patient. We'll continue to monitor closely. [employer] statement: Patient was seen and examined by nurse practitioner Syl Donnelly and all elements of the case discussed with attending Dr. Batista <Boris Batista - Last Filed: 04/06/17 13:51> Progress Note - Text Attending note. Date of service-04/02/2017 This patient was seen and examined by me . I reviewed the note of my nurse practitioner, Ms. Donnelly. Discussed with her, additional findings as below. Presented better today. Still having some abdominal pain. Some blood on toilet paper when wiping. On clear liquids. Up to the bathroom. On examination: Abdomen-lower abdominal tenderness, no guarding or rigidity Investigations: Potassium 3.2 Assessment and plan: Acute ulcerative colitis exacerbation with clinical response. Continue steroids to start to taper the same. Care discussed with the patient
[2017-04-03] MEDS: methylPREDNISolone SOD SUCCI 125 MG/2 ML VIAL IV SCH ×2 (06:19→12:32)
[2017-04-03 07:22] LABS: Glucose,Whole Blood 136 mg/dL (75-99)
[2017-04-03] MEDS: HYDROcodone/APAP 5-325MG 1 EACH TAB PO PRN ×2 (08:34→21:50)
[2017-04-03] MEDS: POTASSIUM CHLORIDE ER 20 MEQ TAB.ER PO SCH ×2 (08:35→21:38)
[2017-04-03] MEDS: ATORVASTATIN 10 MG TAB PO SCH (08:35)
[2017-04-03] MEDS: ALLOPURINOL 300 MG TAB PO SCH (08:35)
[2017-04-03] MEDS: metroNIDAZOLE-NS PMX 500 MG in SALINE 1 100ML.BAG IVPB SCH ×3 (08:35→23:17)
[2017-04-03] MEDS: LORATADINE 10 MG TAB PO SCH (08:35)
[2017-04-03] MEDS: BALSALAZIDE DISODIUM 750 MG CAPSULE PO SCH ×3 (08:35→21:38)
[2017-04-03] MEDS: FAMOTIDINE 20 MG TAB PO SCH ×2 (08:35→21:39)
[2017-04-03] MEDS: CHLORTHALIDONE 25 MG TAB PO SCH (08:35)
[2017-04-03] MEDS: CARVEDILOL 12.5 MG TAB PO SCH ×2 (08:35→21:38)
[2017-04-03] MEDS: INSULIN LISPRO (humaLOG) 300 UNIT/3 ML VIAL SQ SCH ×4 (08:36→21:39)
[2017-04-03 09:13] LABS: Anion Gap 14 mmol/L; Blood Urea Nitrogen 12 mg/dL (9-20); Calcium 9.2 mg/dL (8.4-10.2); Carbon Dioxide 28 mmol/L (22-30); Chloride 98 mmol/L (98-107); Glucose 208 mg/dL (74-99); Non-African American GFR(MDRD) >60 (>60 ml/min/1.73 sqM); Potassium 3.7 mmol/L (3.5-5.1); Sodium 140 mmol/L (137-145)
[2017-04-03] MEDS: DICYCLOMINE 20 MG TAB PO PRN ×2 (09:46→18:04)
[2017-04-03 12:05] LABS: Glucose,Whole Blood 156 mg/dL (75-99)
--- NOTE | 2017-04-03 15:21 | PN ---
DATE OF SERVICE: 04/03/2017 PRESENTING COMPLAINT: Bloody stools. INTERVAL HISTORY: This patient admitted with recent diagnosis of ulcerative colitis, presented with abdominal pain and bloody stools. Abdominal pain is getting better, has about 3 or 4 bowel movements since this morning. Only blood when he wipes himself. Is on a clear liquid diet. No fever. Review of systems done for constitutional, cardiovascular, GI, pulmonary, relevant findings as above. Current medications are reviewed that include Colazal, IV Solu-Medrol 60 q.6. On examination, temperature 97.6, pulse 55, respirations 18, blood pressure 126/ 80, pulse 95% on room air. GENERAL APPEARANCE: Lying in bed, not in distress. EYES: Pupils equal, conjunctivae normal. NECK: JVD not raised, mass not palpable. Respiratory effort normal. Lungs clear to auscultation. CARDIOVASCULAR: First and second sounds, no edema. ABDOMEN: Lower abdominal tenderness, decreased. No guarding or rigidity. Liver and spleen not palpable. PSYCHIATRIC: Alert and oriented x3, mood and affect normal. INVESTIGATIONS: Potassium 3.7, Accu-Cheks are noted. ASSESSMENT: 1. Acute ulcerative colitis exacerbation, slowly improving. 2. Obesity, body mass index of 30.4. 3. Essential hypertension. 4. Kidney stone, asymptomatic. PLAN: 1. Continue with IV fluids. Will cut back on Solu-Medrol to 40 q.8. 2. Care was discussed with the patient. 3. GI is following the case. [facility]
[2017-04-03] MEDS: methylPREDNISolone SOD SUCCI 40 MG/ML 1 ML VIAL IV SCH ×2 (15:39→23:17)
[2017-04-03 17:22] LABS: Glucose,Whole Blood 177 mg/dL (75-99)
[2017-04-03 20:59] LABS: Glucose,Whole Blood 172 mg/dL (75-99)
--- NOTE | 2017-04-03 21:34 | P.PN ---
Subjective 51-year-old male patient recently diagnosed 03/21/2017 with active left sided ulcerative colitis status post colonoscopy. He was discharged on Colazal 750 mg 2 tablets TID as well as hydrocortisone enema QHS. Patient returned to the hospital with increased left-sided abdominal pain without fever or chills. 10-15 loose blood tinged bowel movements daily. Denies hematemesis or melena. Patient states he had some relief for the first 2 -3 days after discharge with steroid-based enemas that then abdominal pain and bowel movements increased and was having difficulties urinating which has since improved. CT abdomen and pelvis without oral contrast reported engorgement of the sigmoid and descending colon as well as local adenopathy without obstruction abscess or perforation. Patient has been gradually improving with IV steroids and mesalamine. Objective - Vital Signs Vital signs: Vital Signs Temp 97.2 F L 04/03/17 15:00 Pulse 65 04/03/17 15:00 Resp 16 04/03/17 16:00 BP 132/65 04/03/17 15:00 Pulse Ox 96 04/03/17 15:00 Intake & Output 04/03/17 04/03/17 04/04/17 06:59 18:59 06:59 Intake Total 200 Balance 200 Intake: Oral 200 Other: # Voids 2 1 - Exam General appearance: The patient is alert, oriented, in no acute distress. HET: Head is normocephalic and atraumatic. Pupils are equal and reactive. Oropharynx is clear without lesions. Neck: Supple without lymphadenopathy. Trachea midline. Heart: S1 S2. Regular rate and rhythm. Lungs: No crackles or wheezes are heard. Abdomen: Soft, left lower quadrant tenderness, nondistended with bowel sounds. No peritoneal signs. No palpable organomegaly or masses. Extremities: Normal skin color and turgor. No cyanosis, rash, ulceration, clubbing, or edema. Radial and pedal pulses are 2/4 bilaterally. Neurological: No focal deficits. Strength and sensation are grossly intact. - Labs CBC & Chem 7: 04/01/17 06:26 04/03/17 08:35 Labs: Abnormal Lab Results - Last 24 Hours (Table) 04/03/17 04/03/17 04/03/17 Range/Units 07:19 08:35 12:01 Glucose 208 H (74-99) mg/dL POC Glucose (mg/dL) 136 H 156 H (75-99) mg/dL 04/03/17 04/03/17 Range/Units 17:18 20:57 Glucose (74-99) mg/dL POC Glucose (mg/dL) 177 H 172 H (75-99) mg/dL Microbiology - Last 24 Hours (Table) 04/01/17 07:45 Stool Culture - Preliminary Stool Assessment and Plan Plan: Colitis gradually improving with current therapy. Will keep tapering steroids and change to oral schedule in anticipation of discharge to F/U as outpatient.
[2017-04-03] MEDS: amLODIPine 10 MG TAB PO SCH (21:38)
[2017-04-03] MEDS: LOSARTAN 50 MG TAB PO SCH (21:38)
[2017-04-04 07:21] LABS: Glucose,Whole Blood 138 mg/dL (75-99)
[2017-04-04] MEDS: methylPREDNISolone SOD SUCCI 40 MG/ML 1 ML VIAL IV SCH ×3 (08:03→23:20)
[2017-04-04] MEDS: ALLOPURINOL 300 MG TAB PO SCH (08:03)
[2017-04-04] MEDS: CHLORTHALIDONE 25 MG TAB PO SCH (08:03)
[2017-04-04] MEDS: FAMOTIDINE 20 MG TAB PO SCH ×2 (08:03→20:09)
[2017-04-04] MEDS: CARVEDILOL 12.5 MG TAB PO SCH ×2 (08:03→20:08)
[2017-04-04] MEDS: BALSALAZIDE DISODIUM 750 MG CAPSULE PO SCH ×3 (08:03→20:10)
[2017-04-04] MEDS: LORATADINE 10 MG TAB PO SCH (08:03)
[2017-04-04] MEDS: POTASSIUM CHLORIDE ER 20 MEQ TAB.ER PO SCH ×2 (08:03→20:10)
[2017-04-04] MEDS: metroNIDAZOLE-NS PMX 500 MG in SALINE 1 100ML.BAG IVPB SCH ×3 (08:03→23:20)
[2017-04-04] MEDS: ATORVASTATIN 10 MG TAB PO SCH (08:03)
[2017-04-04] MEDS: INSULIN LISPRO (humaLOG) 300 UNIT/3 ML VIAL SQ SCH ×4 (08:10→21:44)
[2017-04-04] MEDS: DICYCLOMINE 20 MG TAB PO PRN (08:51)
[2017-04-04 09:05] LABS: Basophils % (A) 0 %; CH 29.3; CHCM 35.2; Eosinophils % (A) 0 %; HCT 41.7 % (39.0-53.0); HGB 14.8 gm/dL (13.0-17.5); Luc # (Auto) 0.06; Luc % (Auto) 1; Lymphocytes # (A) 0.7 k/uL (1.0-4.8); Lymphocytes % (A) 6 %; MCH 29.7 pg (25.0-35.0); MCHC 35.5 g/dL (31.0-37.0); MCV 83.7 fL (80.0-100.0); Monocytes # (A) 0.5 k/uL (0-1.0); Monocytes % (A) 4 %; Neutrophils # (A) 9.8 k/uL (1.3-7.7); Neutrophils % (A) 89 %; RBC 4.98 m/uL (4.30-5.90); RDW 14.2 % (11.5-15.5); WBC 11.1 k/uL (3.8-10.6); WBC (Perox) 11.59
[2017-04-04 12:35] LABS: Glucose,Whole Blood 148 mg/dL (75-99)
[2017-04-04 17:21] LABS: Glucose,Whole Blood 110 mg/dL (75-99)
[2017-04-04] MEDS: HYDROcodone/APAP 5-325MG 1 EACH TAB PO PRN (17:22)
[2017-04-04] MEDS: amLODIPine 10 MG TAB PO SCH (20:08)
[2017-04-04] MEDS: LOSARTAN 50 MG TAB PO SCH (20:09)
[2017-04-04 20:33] LABS: Glucose,Whole Blood 212 mg/dL (75-99)
[2017-04-05 07:18] LABS: Glucose,Whole Blood 125 mg/dL (75-99)
[2017-04-05 07:41] VITALS: BP 114/69; PULSE 55; RESP 14; TEMP 98.7
[2017-04-05] MEDS: INSULIN LISPRO (humaLOG) 300 UNIT/3 ML VIAL SQ SCH ×2 (07:54→12:37)
[2017-04-05] MEDS: metroNIDAZOLE-NS PMX 500 MG in SALINE 1 100ML.BAG IVPB SCH (09:18)
[2017-04-05] MEDS: BALSALAZIDE DISODIUM 750 MG CAPSULE PO SCH (09:18)
[2017-04-05] MEDS: FAMOTIDINE 20 MG TAB PO SCH (09:18)
[2017-04-05] MEDS: CARVEDILOL 12.5 MG TAB PO SCH (09:18)
[2017-04-05] MEDS: POTASSIUM CHLORIDE ER 20 MEQ TAB.ER PO SCH (09:19)
[2017-04-05] MEDS: ALLOPURINOL 300 MG TAB PO SCH (09:19)
[2017-04-05] MEDS: ATORVASTATIN 10 MG TAB PO SCH (09:19)
[2017-04-05] MEDS: methylPREDNISolone SOD SUCCI 40 MG/ML 1 ML VIAL IV SCH (09:19)
[2017-04-05] MEDS: LORATADINE 10 MG TAB PO SCH (09:19)
[2017-04-05] MEDS: CHLORTHALIDONE 25 MG TAB PO SCH (09:19)
[2017-04-05] MEDS: HYDROcodone/APAP 5-325MG 1 EACH TAB PO PRN (10:25)
[2017-04-05 12:18] LABS: Glucose,Whole Blood 124 mg/dL (75-99)
--- NOTE | 2017-04-06 07:39 | PN ---
DATE OF SERVICE: 04/04/17 PRESENTING COMPLAINT: Abdominal pain. INTERVAL HISTORY: This patient was seen by me on 04/04/17. Diagnosed with ulcerative colitis. Presented with bloody stool, abdominal pain. The bloody stool not decreased. Abdominal pain is actually better. The patient did tolerate a liquid diet. Had three or four bowel movements. Review of systems: Done for constitutional, cardiovascular, GI, pulmonary, relevant findings as above. Current medications are reviewed that include IV Solu-Medrol 40 mg q8 and IV Flagyl. On examination, afebrile, pulse 54, respiratory rate 16. Blood pressure 101/60. Pulse ox 95% on room air. General appearance lying in bed, comfortable. Awake. Eyes: Pupils equal. Conjunctivae normal. Neck: JVD not raised. Mass not palpable. Respiratory effort normal. Lungs are clear. Cardiovascular: First and second sounds normal. No edema. Abdomen lower abdominal tenderness. No guarding or rigidity. Liver and spleen not palpable. PSYCHOLOGICAL: Alert and oriented times three. Mood and affect normal. Investigations: Accu-Cheks are noted. White count 11.1. ASSESSMENT: 1. Acute ulcerative colitis exacerbation slowly improving. 2. Obesity BMI 38.4. 3. Essential hypertension. 4. ( ) asymptomatic. PLAN: Care was discussed with the patient. Keep the patient on the current dose of Solu-Medrol. Keep the antibiotics going. Encourage the patient to ambulate and see how he does. MTDD
--- NOTE | 2017-04-08 12:45 | DS ---
FINAL DIAGNOSIS: 1. Acute ulcerative colitis exacerbation. 2. Obesity, BMI 30.4. 3. Essential hypertension. 4. Kidney stones asymptomatic. 5. Abdominal cramping, spasms from above. HOSPITAL COURSE: This patient with diagnosis of ulcerative colitis for colonoscopy and biopsy presented with abdominal pain, bloody stools, diarrhea. Responded well to IV steroids. Now down to about two bowel movements a day. No more blood. Tolerating a very light diet. Today spoke to the patient and . The patient doing much better. On examination, abdomen soft, nontender. Hemoglobin 14.8. DC MEDICATIONS: 1. Allopurinol 300 mg po daily. 2. ( ) po daily. 3. Coreg 25 mg po b.i.d. 4. Zyrtec 10 mg po daily. 5. Chlorthalidone 25 mg po daily. 6. Nasal spray. 7. Cozaar 100 mg po q.h.s. 8. Potassium 20 meq po b.i.d. 9. Norvasc 10 mg po q.h.s. 10. ( ) 1500 mg po t.i.d. 11. Pepcid 20 mg b.i.d. 12. [place] 5 one tablet q6h prn. 13. Bentyl 20 mg po t.i.d. prn for spasm. 14. Prednisone 60 mg a day for five days and then drop to 50 mg a day. 15. Follow-up with Dr. Bliss. 16. Follow-up with Dr. Nikos Borjas in three days. 17. Dr. Bliss in ten days. 18. Diet is soft. 19. DC planning more than 35 minutes. MTDD
== END 2017-04-05 15:15 | disposition home or self-care (01) | DRG 387 ==
LOC: EC 18:54 → 3OBS 22:20 → OBSVTOIN 04-01 14:47 → 4MS4W 04-01 16:40
PROVIDERS: ADMIT Hospitalist; ATTEND Hospitalist
DX: K51.511 Left sided colitis with rectal bleeding (principal); I10 Essential (primary) hypertension; K51.90 Ulcerative colitis, unspecified, without complications; N20.0 Calculus of kidney; R68.83 Chills (without fever); R59.0 Localized enlarged lymph nodes; R53.1 Weakness; E66.9 Obesity, unspecified; Z82.5 Family history of asthma and other chronic lower respiratory diseases; Z79.899 Other long term (current) drug therapy; Z82.49 Family history of ischemic heart disease and other diseases of the circulatory system; Z87.442 Personal history of urinary calculi; Z71.3 Dietary counseling and surveillance; Z83.79 Family history of other diseases of the digestive system; Z90.49 Acquired absence of other specified parts of digestive tract; Z79.891 Long term (current) use of opiate analgesic; Z79.51 Long term (current) use of inhaled steroids; Z79.52 Long term (current) use of systemic steroids
CPT/HCPCS: 36415; 74020; 74177; 80048; 80053; 81001; 82150; 83036; 83605; 83690; 83735; 85025; 86140; 87045; 87046; 87324; 96361; 96365; 96367; 96375; 99285